=== PATIENT | female | born 1985 | race Caucasian/White ===

== ENCOUNTER 2019-04-01 14:54 | Outpatient (CLI) | payer MEDICAID, SELFPAY ==
--- NOTE | 2019-04-01 15:08 | US_ITS ---
WS: [id number] OB ultrasound, 04/01/2019 Clinical Data: SUPERVISION OF NORMAL Comparison: None. Findings: There is a single interuterine in the breech presentation. heart rate is 150 beats pe r minute. The placenta is anterior, grade 0 and there is a normal amount of amniotic fluid. The estimated gestational age 19w2d is with an HAVEN of approximately 08/24/2019. The estimated w eight is 288 g or approximately 10 ounces. Measurements of growth and development: BPD 4.37 cm HC 16.61 cm AC 14.02 cm FL 3.02 cm US/US OB <= 14 weeks fetus [id number] Impression: 1. Single interuterine . 2. Estimated gestational age of 19w2d with an HAVEN of 08/24/2019. 3. heart rate 150 beats per minute.
== END 2019-04-01 14:55 | disposition home or self-care (01) ==
PROVIDERS: PCP Nurse Practitioner Family; Visit Provider Nurse Practitioner Family
DX: O26.842 Uterine size-date discrepancy, second trimester (principal); Z3A.19 19 weeks gestation of pregnancy
CPT/HCPCS: 76801

== ENCOUNTER 2019-08-25 16:11 | Outpatient (CLI) | payer MEDICAID, SELFPAY ==
[2019-08-25] VITALS (9 sets, daily range): BP systolic 0–132; BP diastolic 0–95; PULSE 97–124; RESP 18; TEMP 36.9; BMI 34.7
[2019-08-25 17:07] LABS: Nitrazine Paper, PH Negative
[2019-08-25 17:19] LABS: Amphetamines Screen Urine Negative (Negative); Barbiturates Screen Urine Negative (Negative); Benzodiazepines Screen Urine Negative (Negative); Cocaine Screen Urine Negative (Negative); Opiate Screen Urine Negative (Negative); PCP Screen Urine Negative (Negative); THC Screen Urine Negative (Negative)
== END 2019-08-25 19:10 | disposition home or self-care (01) ==
LOC: OPOB 16:22 → OBGYN 18:51
PROVIDERS: PCP Nurse Practitioner Family; Visit Provider Obstetrics & Gynecology
DX: O26.899 Other specified pregnancy related conditions, unspecified trimester (principal); Z3A.00 Weeks of gestation of pregnancy not specified; R10.9 Unspecified abdominal pain
CPT/HCPCS: 59025; 80306; 83986; 99211

== ENCOUNTER → 2020-09-18 12:54 | Outpatient (BNVA) | payer MEDICAID, SELFPAY | PROVIDERS: PCP Nurse Practitioner Family; Visit Provider Emergency Medicine | DX: M54.9 Dorsalgia, unspecified (principal) | CPT/HCPCS: 81000 ==

== ENCOUNTER 2021-06-17 22:13 | Inpatient (IN) | payer BC, MEDICAID, SELFPAY ==
[2021-06-17] VITALS (12 sets, daily range): BP systolic 139–174; BP diastolic 83–109; PULSE 86–114; RESP 16–17; BMI 35.2
[2021-06-17 22:18] LABS: Nitrazine Paper, PH Positive
[2021-06-17 22:34] LABS: Basophils % 0.2 %; Eosinophils # 0.1 10^3/uL (0.0-0.8); Eosinophils % 0.7 %; Hematocrit 36.1 % (37.0-47.0); Hemoglobin 11.6 g/dL (11.5-15.3); Lymphocytes # 1.9 10^3/uL (0.8-4.8); Lymphocytes % 14.1 %; Mean Corpuscular HGB Conc 32.1 g/dL (30.0-36.0); Mean Corpuscular Hemoglobin 25.8 pg (28.0-34.0); Mean Corpuscular Volume 80.4 fl (81-99); Mean Platelet Volume 10.7 fL (7.4-10.4); Monocytes # 1.4 10^3/uL (0.2-0.9); Monocytes % 10.4 %; Neutrophils # 9.83 10^3/uL (1.8-7.7); Neutrophils % 73.8 %; Nucleated Red Blood Cells % 0 %; Platelet Count 237 10^3/cmm (130-400); Red Blood Count 4.49 10^6/uL (4.1-5.3); Red Cell Distribution Width 15.1 % (12.1-15.1); White Blood Count 13.3 10^3/uL (4.0-10.0)
[2021-06-17] MEDS: ampicillin 2,000 MG in sodium chloride 0.9% (plus) 50 ML 100 MG IV (22:36)
[2021-06-17] MEDS: lactated ringers 1,000 ML 999 ML IV (22:51)
[2021-06-17 23:23] LABS: Amphetamines Screen Urine Negative (Negative); Barbiturates Screen Urine Negative (Negative); Benzodiazepines Screen Urine Negative (Negative); Cocaine Screen Urine Negative (Negative); Opiate Screen Urine Negative (Negative); PCP Screen Urine Negative (Negative); THC Screen Urine Negative (Negative)
[2021-06-17 23:48] LABS: Add Urine Culture? No; Add Urine Microscopic? YES; Bacteria Urine TRACE /hpf; Bilirubin Urine Neg (Negative); Blood Urine Neg (Negative); Glucose Urine UA Norm (Normal); Ketones Urine Negative (Negative); Leukocyte Esterase Urine Negative (Negative); Nitrate Urine Negative (Negative); Protein Urine Neg (Negative); RBC Urine 15-25 /hpf (0-2); Specific Gravity, Urine 1.005 (1.005-1.030); Squamous Epithelial Cell Urine 15-25 /hpf (0-5); Urine Appearance SL Hazy (CLEAR); Urine Color Yellow (Yellow); Urobilinogen Urine Norm (Negative); WBC Urine 0-4 /hpf (0-5); pH Urine 7 (5-7)
[2021-06-17 23:54] LABS: Urine Creatinine 37 mg/dL (28-217)
[2021-06-18] VITALS (138 sets, daily range): BP systolic 67–177; BP diastolic 40–110; PULSE 61–109; RESP 14–22; TEMP 36.6–37.6; O2SAT 86–100
[2021-06-18 00:01] LABS: UPRO/UCREAT Ratio 1.35 mg/mg CR; Urine Protein Random 50 mg/dL
[2021-06-18 00:13] LABS: Alanine Aminotransferase 19 U/L (0-33); Albumin Level 3.2 g/dL (3.5-5.2); Alkaline Phosphatase 165 IU/L (35-105); Anion Gap 14.6 (5-19); Aspartate Amino Transferase 17 U/L (0-32); Blood Urea Nitrogen 5 mg/dL (6-20); Calcium 8.1 mg/dL (8.5-10.5); Carbon Dioxide 22 mmol/L (22-29); Chloride 104 mmol/L (98-107); Globulin 2.8 g/dL (1.3-4.6); Glomerular Filtration Rate 178.6 mL/min (90-130); Glucose 87 mg/dL (65-115); Osmolality Calculated 281 mOsm/kg (285-295); Potassium 3.6 mmol/L (3.5-5.1); Sodium 137 mmol/L (136-145); Total Bilirubin 0.2 mg/dL (0.15-1.2)
--- NOTE | 2021-06-18 00:20 | P.ANESASSM_ITS ---
Pre-Anesthetic Assessment Height/Weight: Height 1.63 m Weight 92.986 kg Pulse Resp BP 90 17 166/99 06/18/21 00:12 06/17/21 22:19 06/18/21 00:12 Preop Diagnosis: labor pain epidural Familial anesthetic complications: none Was Beta Andrew taken within 24 hours: N/A Was Clonidine taken within 24 hours: N/A Social Tobacco and No alcohol Exam alert, oriented x 3, clear to auscultation bilaterally and regular rate & rhythm Airway Submandibular: within normal limits Cervical ROM: within normal limits Mallampati: Class II Dentition: full Pulmonary None reported CV/HEM None reported None reported Hepatic None reported GI Gastroesophageal Reflux Disease (during ) Metabolic None reported Musc/skel None reported Neuropsych None reported Anesthetic Plan ASA status: 2 Anesthesia: Regional (specify below) Risk of > 500 ml blood loss (7ml/kg in children): No Medications/Allergies Home Medications Medication Instructions Recorded Confirmed Last Taken Type vits,calcium 21-iron fum 1 tab PO DAILY 08/25/19 06/17/21 06/17/21 History 14 mg iron-folic acid 400 mcg tablet ( Complete) famotidine 20 mg tablet (Pepcid) 20 mg PO BID 06/17/21 06/17/21 06/17/21 History Allergies Allergy/AdvReac Type Severity Reaction Status Date / Time No Known Allergies Allergy Verified 06/17/21 21:49 Current Medications Generic Name Dose Route Start Last Admin Trade Name Freq PRN Reason Stop Dose Admin Lactated Ringer's 1,000 mls @ 999 mls/hr 06/17/21 22:32 06/17/21 22:51 Lactated Ringers IV 999 mls/hr .Q1H1M PRN Administration See label comments [facility] Anesthesia Social History Smoking and tobacco status: current every day smoker Female Reproductive History : 6 Spontaneous abortions: No Data Anesthesia : 06/17/21 22:13 06/17/21 23:40 Short CBC 06/17/21 Range/Units 22:13 WBC 13.3 H (4.0-10.0) 10^3/uL Hgb 11.6 (11.5-15.3) g/dL Hct 36.1 L (37.0-47.0) % MCV 80.4 L (81-99) fl Plt Count 237 (130-400) 10^3/cmm Neut % (Auto) 73.8 % Neut # (Auto) 9.83 H (1.8-7.7) 10^3/uL BMP 06/17/21 23:40 Sodium 137 Potassium 3.6 Chloride 104 Carbon Dioxide 22 BUN 5 L Creatinine 0.4 L Glucose 87 Calcium 8.1 L Liver Function 06/17/21 Range/Units 23:40 Total Bilirubin 0.2 (0.15-1.2) mg/dL AST 17 (0-32) U/L ALT 19 (0-33) U/L Alkaline Phosphatase 165 H (35-105) IU/L Albumin 3.2 L (3.5-5.2) g/dL Urine 06/17/21 Range/Units 21:30 Urine Color Yellow (Yellow) Urine Appearance Sl hazy (CLEAR) Urine pH 7 (5-7) Ur Specific [place] 1.005 (1.005-1.030) Urine Protein Neg (Negative) Urine Glucose (UA) Norm (Normal) Urine Ketones Negative (Negative) Urine Nitrate Negative (Negative) Urine Bilirubin Neg (Negative) Ur Leukocyte Esterase Negative (Negative) Urine RBC 15-25 H (0-2) /hpf Urine WBC 0-4 H (0-5) /hpf Cardiac Studies: No Data to Display
[2021-06-18] MEDS: magnesium sulfate premix 2 GM/50 ML PIGGYBACK IV (00:40)
--- NOTE | 2021-06-18 00:56 | P.ANES_ITS ---
Anesthesia Procedures Procedure/Date: 06/18/21 epidural Procedure Narrative: epidural complete, bolus given, epidural pump initiated with DOBBY LOOM WEAVER education given, vitals taken during procedure using OBIX system and satisfactory throughout, patient admits to decrease pain, report of procedure to OB RN Epidural: Time Out Performed: Yes Consents Signed: Procedure Consent Consent: requested by attending/covering physician, from patient, risks and benefits reviewed and patient agrees to proceed Lumbar Level: L3-L4 Epidural position: sitting Epidural procedure: sterile prep of area, 1% lidocaine to numb the area (3 mL), 18 g needle, negative for paresthesia passed, neg for paresthesia, test dose given, 1.5% xylocaine 1:200k epi (5 mL), 0.2% Ropivacaine bolus ml (5 mL), placed PCEA, no systemic response, sterile dressing applied, L.U.D. no apparent complications and 0.2% Ropiavacaine @ mls/hr (13 mL/hr)
[2021-06-18] MEDS: magnesium sulfate premix 20 GM/500 ML BAG IV ×3 (01:01→19:15)
[2021-06-18] MEDS: dextrose 5%-lactated ringers 1,000 ML 125 ML IV ×3 (01:03→19:14)
[2021-06-18] MEDS: ePHEDrine 50 mg/mL Inj 10 MG IVP ×2 (01:43→02:30)
[2021-06-18] MEDS: ondansetron 2 mg/ML SDV 2 mL 4 MG IVP (01:44)
[2021-06-18] MEDS: lactated ringers 1,000 ML 999 ML IV (02:26)
[2021-06-18] MEDS: dextrose 5%-lactated ringers 1,000 ML 75 ML IV (03:30)
[2021-06-18] MEDS: acetaminophen 325 mg Tablet 650 MG PO ×4 (03:33→21:34)
[2021-06-18] MEDS: oxytocin 30 UNIT/500 ML BAG IV (08:10)
--- NOTE | 2021-06-18 09:05 | PC.NURSE ---
Magnesium was stopped at 3:33 am, this is monitoring for increased blood pressures over 160/110 and signs and symptoms of seizure activity.
[2021-06-18] MEDS: nicotine 21 mg Patch 1 PATCH TRANSDERMA (10:34)
--- NOTE | 2021-06-18 14:42 | P.PCNOB_ITS ---
Delivery Note: Date of delivery: June 18, 2021 Pre-delivery diagnoses: Term Tobacco use in Severe preeclampsia Post-delivery diagnoses: Term delivered Severe preeclampsia Procedure: Spontaneous vaginal delivery vaginal delivery Delivering Physician: Lyle Mederos MD Estimated blood loss (mL): 300 Delivery: The patient was noted to be complete and pushing, so was placed in the dorsal lithotomy position, prepped and draped in the usual sterile fashion for a vaginal delivery. Pt. Noted to have epidural anesthesia. At 1418 the patient delivered a term viable male weighing 3135g with scores of 8 and 9 at one and five minutes, respectively. The vertex was delivered spontaneously over intact perineum. The patient was asked to push and the head delivered spontaneously in the RUPERT position, over an intact perineum. A nuchal cord was checked and none noted. The anterior shoulder delivered easily and the posterior shoulder followed. The remainder of the was easily delivered and the oropharynx and nasopharynx was bulb suctioned. The infant was noted to have spontaneous cry and spontaneous movement of all four extremities. The cord was clamped x 2 and cut and noted to have 2 arteries and one vein. The was passed to the mother's abdomen where nursing personnel were in attendance. Cord blood sample was then obtained. The placenta delivered intact spontaneously and the uterus was explored. 20 units of Pitocin was placed in the IV bag to firm the uterus. Examination of the cervix and vaginal vault did not reveal any lacerations. A vaginal pack was then placed. Examination of the perineum showed second-degree laceration. The laceration was repaired with 3-0 Vicryl in the normal fashion in a running non locking fashion to reapproximate the laceration in layers. The vaginal pack was then removed. The patient tolerated this procedure well, and recovered in L&D with her in their LDR room. All sponge and needle counts were correct. A&P Assessment and plan (1) Term delivered: Status: Acute (2) Tobacco smoking complicating : Status: Acute (3) Severe pre-eclampsia affecting sixth : Status: Acute Coding Level of Care Code Acute Delinquency Prevention Social Worker for Chg Fwd Diagnoses Term delivered O80 Tobacco smoking complicating O99.330 Severe pre-eclampsia affecting sixth O14.10; O09.40
--- NOTE | 2021-06-18 14:50 | P.HP_ITS ---
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 Came to labor and delivery complaining of contractions and active labor. No care Present Details : 6 Para: 5 Labs Rubella: Immune RPR: Negative GBS: Negative Review of Systems Narrative: movement: no Const: Denies: fever(s) or chills Card: Denies: chest pain, palpitations, irregular heart rhythm or syncope Resp: Denies: dyspnea GI: Denies: abdominal pain, nausea or vomiting : Denies: flank pain, dysuria, urinary frequency or urinary urgency Musc: Denies: back pain or extremity swelling Skin/Breast: Denies: rash, pruritus, breast pain, nipple discharge or breast mass Neuro: Denies: headache(s), difficulty walking, dizziness or restless legs Psych: Denies: anxiety, depression or mood swings Endo: Denies: polyuria, tired all the time, cold intolerance or heat intolerance Trip/Lymph: Denies: easy bruising, easy bleeding, petechiae or purpura All/Imm: Denies: urticaria Medications/Allergies Home Medications Medication Instructions Recorded Confirmed Last Taken Type vits,calcium 21-iron fum 1 tab PO DAILY 08/25/19 06/23/21 06/17/21 History 14 mg iron-folic acid 400 mcg tablet ( Complete) famotidine 20 mg tablet (Pepcid) 20 mg PO BID 06/17/21 06/23/21 06/17/21 History nifedipine 30 mg tablet,extended 30 mg PO DAILY #30 tab 06/20/21 06/23/21 Unknown Rx release 24 hr (Procardia XL) Allergies Allergy/AdvReac Type Severity Reaction Status Date / Time No Known Allergies Allergy Verified 06/23/21 08:31 PFS 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 PROJECTION TOPOGRAPHER PFSH: Surgical History (Updated 06/23/21 @ 09:01 by Abril Honeycutt MD) H/O dilation and curettage x2 H/O LEEP History of cholecystectomy Family History (Updated 06/23/21 @ 08:36 by Lisa Danny, FOOD HANDLER) Mother Hypertension Ovarian cancer Other Heart disease Hypercholesteremia Thyroid disease Denies family history of Colon cancer Diabetes Breast cancer Uterine cancer Stroke Personal Safety: Do you feel safe at home: Yes Victim of physical abuse: No Victim of emotional abuse: No Victim of sexual abuse: No Would you like help information on resources?: No History History History 8 Term 5 Miscarriages/Ectopic 2 1 Living Children 6 Vitals/I&O/Wt Last Vital Signs Pulse 91 06/18/21 14:36 Resp 17 06/18/21 00:19 BP 140/68 06/18/21 14:36 Pulse Ox 99 06/18/21 03:35 06/17/21 06/18/21 06/18/21 22:59 06:59 14:59 Intake Total 3049.700 / 3049.700 1076.25 / 1076.25 Output Total 599 / 599 1800 / 1800 Balance 2450.700 / 2450.700 -723.75 / -723.75 Weight last 48 hrs Weight 92.986 kg Physical Exam Narrative: GA: Alert and oriented ?3. Lungs: Clear to auscultation bilaterally. Heart: Regular rhythm and rate. Abdomen: Gravid, full the height equals dates, nontender. ACCOUNT EXECUTIVE: SVE; dilation: 7 cm, effacement: 80%, station: 0, presentation: Vx, membranes: SROM. Extremities: no edema, no cyanosis, no calves pain. heart tracing: Basal rate: 140's bpm, Variability: moderate, Accelerations: present, Decelerations: absent, Contraction: q5-10min. Urinary Catheter Management: Mariscal: Cath Placed During This Visit: yes Reason for Continuing Indwelling Catheter: Required Immobilization for Trauma or Surgery or Anesthesia Urinary Catheter Date of Insertion: 06/18/21 Urinary Catheter Time of Insertion: 01:00 Data : 06/20/21 15:00 06/20/21 05:15 A&P Assessment and plan (1) Active labor at term: Mrs. Carbone 36-year-old female G8, P5 with an estimated gestational age of 37+2 weeks. Came to labor and delivery complaining of contractions and active labor. No care Status: Acute (2) Tobacco smoking complicating : Status: Deleted (3) Severe pre-eclampsia affecting sixth : Status: Acute Attestations Medical Necessity Statement*: In my professional opinion per admitting diagn osis. Coding Level of Care Code Acute Shell Coremaker for Chg Fwd Diagnoses Tobacco smoking complicating O99.330 Severe pre-eclampsia affecting sixth O14.10; O09.40 Active labor at term
[2021-06-18] MEDS: ibuprofen 800 mg tablet PO (16:15)
[2021-06-18] MEDS: labetalol 5 mg/mL SDV 20mL 20 MG IVP (16:16)
[2021-06-18 16:58] LABS: Magnesium Level (OB Only) 4.1 mg/dL (5.0-7.5)
[2021-06-18] MEDS: benzocaine-menthol 78 gm Canister 1 SPRAY TOPICAL (20:48)
[2021-06-18] MEDS: oxytocin 30 UNIT/500 ML BAG 600 UNIT IV (22:27)
[2021-06-18] MEDS: fentaNYL 50 mcg/mL INJ 2mL 25 MCG IVP (22:37)
[2021-06-18] MEDS: miSOPROStol 200 mcg Tablet 800 MCG PR (22:41)
--- NOTE | 2021-06-18 22:59 | XRR_ITS ---
PROCEDURE INFORMATION: Exam: XR Chest Exam date and time: 06/18/2021 10:30 PM Age: 36 years old Clinical indication: Shortness of breath; Patient HX: Post SOB and cp; Additional info: Chest pain TECHNIQUE: Imaging protocol: XR of the chest. Views: 1 view. COMPARISON: No relevant prior studies available. FINDINGS: Lungs: No CHF/pulmonary edema. Visible lungs appear essentially clear. Pleural spaces: No visible pneumothorax. No definite pleural fluid. Heart/Mediastinum: Heart size is within normal limits. Bones/joints: No significant acute finding. XR/XR chest 1V portable [id number] IMPRESSION: 1. Essentially unremarkable single view chest. 2. Other findings discussed above.
--- NOTE | 2021-06-18 22:59 | ECG_ITS ---
[facility] Test Date: 2021-06-18 Pat Name: Ping Kapadia Department: Room: [facility] Gender: Female Prefabricator: : 1985 Requested By: Abril Honeycutt Order Number: [id number] Josse MD: Zeynep Gottlieb M.D. Measurements Intervals [place] Rate: 73 P: 57 MT: 179 QRS: 52 QRSD: 109 T: 54 QT: 416 QTc: 461 Interpretive Statements SINUS RHYTHM No previous ECG available for comparison Electronically Signed On 06-19-2021 15:01:17 CDT by Zeynep Gottlieb M.D. [id number]
[2021-06-18 23:11] LABS: Basophils % 0.2 %; Eosinophils # 0.1 10^3/uL (0.0-0.8); Eosinophils % 0.4 %; Hematocrit 26.5 % (37.0-47.0); Hemoglobin 8.5 g/dL (11.5-15.3); Lymphocytes # 1.8 10^3/uL (0.8-4.8); Lymphocytes % 13.7 %; Mean Corpuscular HGB Conc 32.1 g/dL (30.0-36.0); Mean Platelet Volume 11.9 fL (7.4-10.4); Monocytes # 1.1 10^3/uL (0.2-0.9); Neutrophils # 10.37 10^3/uL (1.8-7.7); Neutrophils % 77.3 %; Nucleated Red Blood Cells % 0 %; Platelet Count 206 10^3/cmm (130-400); Red Blood Count 3.27 10^6/uL (4.1-5.3); Red Cell Distribution Width 15.4 % (12.1-15.1); White Blood Count 13.4 10^3/uL (4.0-10.0)
[2021-06-18] MEDS: midazolam 1 mg/mL INJ 2 mL 2 MG IVP (23:21)
[2021-06-18 23:23] LABS: Alanine Aminotransferase 16 U/L (0-33); Albumin Level 2.6 g/dL (3.5-5.2); Alkaline Phosphatase 132 IU/L (35-105); Anion Gap 15.3 (5-19); Aspartate Amino Transferase 19 U/L (0-32); Blood Urea Nitrogen 2 mg/dL (6-20); Calcium 6.5 mg/dL (8.5-10.5); Carbon Dioxide 18 mmol/L (22-29); Chloride 105 mmol/L (98-107); Globulin 1.7 g/dL (1.3-4.6); Glomerular Filtration Rate 178.6 mL/min (90-130); Glucose 144 mg/dL (65-115); Osmolality Calculated 279 mOsm/kg (285-295); Potassium 3.3 mmol/L (3.5-5.1); Sodium 135 mmol/L (136-145); Total Bilirubin 0.2 mg/dL (0.15-1.2); Total Protein 4.3 g/dL (6.6-8.7)
--- NOTE | 2021-06-18 23:28 | PC.NURSE ---
1956 This nurse went to patient's room to recheck blood pressure. Patient was concerned about needing diaper change and spit up on blanket. This nurse started to change baby's diaper when patient started to complain of increased cramping and pain in abdomen. Patient stated she felt like she needed to have a bowel movement, then stated she thought she needed to pass a clot. This nurse then moved over to rub the patient's fundus and clots started to come out, at the same time this nurse pushed the call light for assistance. Patricia Elias RN came in and saw the clot and instructed this nurse to continue rubbing. At this time the rest of the clot came out, the size of a softball, followed by >100 mL of blood. The call light was turned on again and Patricia Engle RN and [facility] responded. 2205 Call placed by this nurse to Dr. Mederos. Notified him of bleeding and asked for an order for uterotonic medications. MD ordered misoprostol 800 mg rectal and to call Dr. Honeycutt, who has assumed care of patient, for further orders as needed. 2209 Call placed by this nurse to Dr. Honeycutt. Notified her of bleeding and order for Misoprostol given by Dr. Mederos. This nurse asked MD for further orders for uterotonic medications. MD ordered oxytocin IV 600 ml/hr for 300 mL then 60 ml/hr for 200 mL and tranexamic acid 1000 mg in NS 100 mL at 330 mls/hr IV. MDs presence requested at this time. 2217 Call placed by this nurse to the household cook. She was notified of the continued bleeding and asked for her to come to the department to assist with deteriorating patient. 2219 Rapid response called because patient was complaining of shortness of breath and chest pain. 2220 Rapid response team began arriving in room. This nurse, Patricia Engle, Patricia Elias, Analilia Chicas at bedside at this time. Report given to rapid response team. Refer to MAR for medications given. 2224 Call placed by this nurse to check ETA of Dr. Honeycutt. stated that [place] was at the corner of [address] [place] [id number] and would be in the parking lot in 2 minutes.
[2021-06-18 23:31] LABS: Fibrinogen 380 mg/dL (174-498); Partial Thromboplastin Time 27.3 SECONDS (23.9-36.7)
--- NOTE | 2021-06-18 23:34 | P.CONIM_ITS ---
Providers/Reason For Consult Consulting Physician/Specialty*: Doctor Roderick Reason for Consult*: bleeding Attending Physician: Lyle Mederos MD Primary Care Provider: PRESLEY Truong History of Present Illness History of Present Illness The patient is a 36-year-old female who was transferred to the ICU at approximately 11 PM on June 18, 2021 after a rapid response was called due to bleeding. The patient was admitted on June 17, 2021 for for which she underwent natural delivery on June 18, 2021. The patient is seen a proximally and hour after rapid response was called in the ICU. With the transient hypoactive hypotensive episode due to bleeding, she admitted to nausea, postdelivery abdominal pain, lightheadedness, dizziness, diaphoresis. She denies fever, rigors, vomiting, cough, wheeze, diarrhea, myalgia, palpitations, sense of rapid heartbeat, sensation of irregular heartbeat, peripheral edema. The patient initially endorsed chest pain however upon further clarification she was confounding chest pain and dyspnea and she did deny chest pain. She presents for further evaluation Review of Systems General: Reports: 10 or more systems reviewed and unremarkable except in HPI and below Medications/Allergies Home Medications Medication Instructions Recorded Confirmed Last Taken Type vits,calcium 21-iron fum 1 tab PO DAILY 08/25/19 06/17/21 06/17/21 History 14 mg iron-folic acid 400 mcg tablet ( Complete) famotidine 20 mg tablet (Pepcid) 20 mg PO BID 06/17/21 06/17/21 06/17/21 History Allergies Allergy/AdvReac Type Severity Reaction Status Date / Time No Known Allergies Allergy Verified 06/17/21 21:49 Current Medications Generic Name Dose Route Start Last Admin Trade Name Freq PRN Reason Stop Dose Admin Acetaminophen 650 mg 06/17/21 22:19 06/18/21 21:34 Acetaminophen 325 Mg Tablet PO 650 mg Q6H PRN Administration Mild pain or temp > 100.4 Benzocaine 1 spray 06/18/21 14:47 06/18/21 20:48 Benzocaine-Menthol 78 Gm Canister TOPICAL 1 can PRN PRN Administration PAIN Docusate Sodium 100 mg 06/18/21 18:00 06/18/21 19:35 Docusate Sodium 100 Mg Capsule PO Not Given BID JASMYN Ephedrine Sulfate 10 mg 06/17/21 22:19 06/18/21 02:30 Ephedrine 50 Mg/Ml Inj IVP 10 mg Q3M PRN Administration hypotension as directed by Dextrose/Lactated Ringer's 1,000 mls @ 125 mls/hr 06/17/21 22:30 06/18/21 19:14 Dextrose 5%-Lactated Ringers IV 125 mls/hr .Q8H JASMYN Administration Tranexamic Acid 1,000 mg/ 110 mls @ 330 mls/hr 06/17/21 22:19 06/18/21 22:18 Sodium Chloride IV 330 mls/hr Q30M PRN Administration BLEEDING Lactated Ringer's 1,000 mls @ 999 mls/hr 06/17/21 22:32 06/18/21 03:27 Lactated Ringers IV Infused .Q1H1M PRN Infusion See label comments Dextrose/Lactated Ringer's 1,000 mls @ 125 mls/hr 06/18/21 00:30 06/18/21 20:33 Dextrose 5%-Lactated Ringers IV Not Given .Q8H JAMSYN Magnesium Sulfate 20 gm in 500 mls @ 50 mls/hr 06/18/21 00:30 06/18/21 19:15 Magnesium Sulfate Premix IV 50 mls/hr .Q10H JASMYN Administration Dextrose/Lactated Ringer's 1,000 mls @ 125 mls/hr 06/18/21 15:00 06/18/21 20:32 Dextrose 5%-Lactated Ringers IV Not Given .Q8H JASMYN Magnesium Sulfate 20 gm in 500 mls @ 50 mls/hr 06/18/21 15:00 06/18/21 20:32 Magnesium Sulfate Premix IV Not Given .Q10H JASMYN Ibuprofen 800 mg 06/18/21 15:00 06/18/21 16:15 Ibuprofen 800 Mg Tablet PO 800 mg TID JASMYN Administration Labetalol HCl 20 mg 06/17/21 23:01 06/18/21 16:16 Labetalol 5 Mg/Ml Sdv 20ml IVP 20 mg PRN PRN Administration HYPERTENSION Protocol Nicotine 1 patch 06/18/21 10:15 06/18/21 10:34 Nicotine 21 Mg Patch TRANSDERMA 1 patch DAILY JASMYN Administration Ondansetron HCl 4 mg 06/17/21 22:19 06/18/21 01:44 Ondansetron 2 Mg/Ml Sdv 2 Ml IVP 4 mg Q4H PRN Administration NAUSEA AND VOMITING PFSH Acute PFSH: Social History Smoking and tobacco status: current every day smoker Female Reproductive History: : 6 Spontaneous abortions: No Vitals/I&O/Wt Last Vital Signs Temp 99.7 F H 06/18/21 19:30 Pulse 78 06/18/21 20:30 Resp 16 06/18/21 20:30 BP 155/89 06/18/21 21:30 Pulse Ox 100 06/18/21 19:30 06/18/21 06/18/21 06/19/21 14:59 22:59 06:59 Intake Total 1076.25 / 1076.25 1458.333 / 2534.583 Output Total 1800 / 1800 3805 / 5605 Balance -723.75 / -723.75 -2346.667 / -3070.417 Weight last 48 hrs Weight 92.986 kg Physical Exam Narrative: General: -Alert -No acute distress -No dyspnea -No tachypnea Head: -Atraumatic -Normocephalic Eyes: -Pupils equally round and reactive to light and accommodation -Extraocular muscles intact Neurological: -Cranial nerves II-XII intact Neck: -No jugular venous distention -No thyromegaly -No cervical lymphadenopathy Heart: -Regular rate -Regular rhythm -No murmurs -No gallops -No rubs Lungs: -No wheeze -No rhonchi -No rales ? Abdomen: -Normal bowel sounds in all four quadrants -No rebound -No guarding -No tenderness Extremities: -2/4 pulse in all four extremities -No clubbing -No cyanosis -No edema -No calf tenderness present bilaterally -Negative Tristin?s sign bilaterally Musculoskeletal: -5/5 bilateral upper extremity strength -5/5 bilateral lower extremity strength -Sensorium of bilateral upper extremities are equal and intact -Sensorium of bilateral lower extremities are equal and intact ? Additional Details / Additional Findings / Exceptions / Miscellaneous: Urinary Catheter Management: Mariscal: Cath Placed During This Visit: yes, but has since been removed by the nurse Reason for Continuing Indwelling Catheter: Accurate Measurement of Urinary Output in Critically Ill Patients Urinary Catheter Date of Insertion: 06/18/21 Urinary Catheter Time of Insertion: 15:20 Date Urinary Catheter Removed: 06/18/21 Time Urinary Catheter Discontinued: 14:15 Data : 06/18/21 22:25 06/18/21 22:25 A&P Assessment and plan (1) Severe pre-eclampsia affecting sixth : Status: Acute Plan bleeding. Agents have been administered per obstetrics/gynecology. Patient is receiving 1 unit packed red blood cells at approximately 11 PM on June 18, 2021. Will check CBC every 6 hours. Serum ferritin, iron panel pending. PT/INR, PTT, fibrinogen level pending. Will transfuse as necessary Dyspnea. This may be a sequelae of anxiety from bleeding. Chest x- ray?portable pending. ABG pending. Will attempt to wean the patient off supplemental oxygen. If patient is hypoxemic, will check CTA of the chest to rule out pulmonary ML 7 Status post delivery of viable fetus on June 18, 2021. Monitoring as per obstetrics/gynecology GERD Elevated blood pressure/hypertension Obesity. The patient will be counseled regarding lifestyle modification Smoker. She smoked during the time of her . The patient will need to be counseled regarding smoking cessation DVT Proflex is. Bilateral SCD Consult Attestations Medical Necessity Statement: The patient's hospitalization is anticipated be greater than 2 midnights as she already has been here for approximately 24 hours for delivery for Coding Level of Care Code Acute Solar Manufacturer'S Representative for Chg Fwd Diagnoses Severe pre-eclampsia affecting sixth O14.10; O09.40
[2021-06-18] MEDS: fentaNYL 50 mcg/mL INJ 2mL IVP (23:48)
--- NOTE | 2021-06-18 23:56 | P.PN_ITS ---
Subjective Subjective: called by nursing staff to see patient. She delivered earlier today and is on Magnesium sulfate. She passed a large clot and then had severe bleeding. Her uterus was greatly enlarged. While enroute, rapid response was called due to unstable status. I performed a bimanual exam and removed a few clots. I could feel placental tissue in the uterus. She was taken to the ICU and twice, I performed a bimanuel exam under conscious sedation. I was unable to remove the tissue due to the patient being intolerant. Vitals/I&O/Wt Last Vital Signs Temp 99.7 F H 06/18/21 19:30 Pulse 78 06/18/21 20:30 Resp 16 06/18/21 20:30 BP 155/89 06/18/21 21:30 Pulse Ox 100 06/18/21 19:30 06/18/21 06/18/21 06/19/21 14:59 22:59 06:59 Intake Total 1076.25 / 1076.25 1458.333 / 2534.583 Output Total 1800 / 1800 3805 / 5605 Balance -723.75 / -723.75 -2346.667 / -3070.417 Weight last 48 hrs Weight 205 lb Physical Exam Const: GENERAL APPEARANCE: well kempt, well developed, in distress and anxious ; not cooperative and not comfortable NUTRITIONAL APPEARANCE: obese ORIENTATION/CONSCIOUSNESS: Yes awake, Yes oriented to person, Yes oriented to place and Yes oriented to time Resp: COMMON NORMALS: normal respiratory effort EFFORT & INSPECTION: Yes able to speak in complete sentences GI: COMMON NORMALS: Soft to palpation and non-tender PALPATION: Yes Soft to palpation : COMMON NORMALS: Yes normal external appearance and Yes normal appearance of the vagina SPECULUM EXAM - VAGINA: Yes vaginal bleeding OB/EXTERNAL & SPECULUM: vaginal bleeding UTERUS PALPATION: Yes Other OB uterine findings (enlarged uterus with tissue palpated at fundus) Extremity: COMMON NORMALS: no calf tenderness Neuro: SENSORIUM/ORIENTATION: Yes oriented to person, Yes oriented to place and Yes oriented to time Psych: APPEARANCE: Yes well kempt Urinary Catheter Management: Mariscal: Cath Placed During This Visit: yes, but has since been removed by the nurse Reason for Continuing Indwelling Catheter: Accurate Measurement of Urinary Output in Critically Ill Patients Urinary Catheter Date of Insertion: 06/18/21 Urinary Catheter Time of Insertion: 15:20 Date Urinary Catheter Removed: 06/18/21 Time Urinary Catheter Discontinued: 14:15 Data : 06/18/21 22:25 06/18/21 22:25 A&P Assessment and plan (1) hemorrhage: Status: Acute (2) Retained placenta: plan to take patient to the OR for dilation and curettage patient continues to have moderate bleeding. Status: Acute Attestations Medical Necessity Statement*: the patient will be her 2 midnights. Coding Level of Care Code Acute Director Of Occupational Health for Chg Fwd Diagnoses hemorrhage O72.1 Retained placenta O73.0
[2021-06-19] VITALS (38 sets, daily range): BP systolic 124–187; BP diastolic 73–112; PULSE 65–90; RESP 12–29; TEMP 36.6–36.8; O2SAT 93–99
[2021-06-19 00:15] LABS: NT Pro B Type Natriuretic Pept 59 pg/mL (0-125)
[2021-06-19 00:24] LABS: Magnesium Level (OB Only) 4.8 mg/dL (5.0-7.5)
[2021-06-19 00:32] LABS: Troponin T (5th) Once 7 ng/L (0-10)
--- NOTE | 2021-06-19 00:37 | PC.NURSE ---
THIS NURSE ENTERED PT'S ROOM TO ANSWER CALL LIGHT. WHEN THIS NURSE ENTERED THE ROOM, Patricia GALLEGOS RN AND Obdulio NOVOA RN WERE PERFORMING FUNDAL MASSAGE AND THIS NURSE NOTICED A LARGE CLOT BETWEEN THE PATIENT'S LEGS AND A LARGE AMOUNT OF KYE RED BLEEDING. THIS NURSE TURNED ON THE LIGHT AND CUT OFF THE PATIENT'S MESH UNDERWEAR. Obdulio NOVOA RN STATED PT WAS FIRM WITH MASSAGE BUT WAS STILL BLEEDING. THIS NURSE BEGAN TO PERFORM FUNDAL MASSAGE AND NOTICED A CONTINUOUS TRICKLE OF BLOOD AND STATED TO Obdulio NOVOA RN TO CALL THE PHYSICIAN AND GET ORDERS FOR BLEED MEDICATIONS. THIS NURSE STARTED A BOLUS OF FLUID AT THIS TIME FROM IV FLUIDS HANGING AT BEDSIDE DUE TO PT FEELING LIGHT HEADED. Patricia GALLEGOS RN BEGAN FUNDAL MASSAGE AT THIS TIME AND 2 LARGE CLOTS WERE NOTED ON THE CHUX APPROXIMATELY THE SIZE OF A SOFTBALL. CHUX WERE CHANGED. THIS NURSE BEGAN FUNDAL MASSAGE AND PT'S UTERUS WAS 2 FINGERS ABOVE UMBILICUS AND WAS ENLARGE TO ROUGHLY TWICE THE SIZE OF A NORMAL 8 HOUR POST DELIVERY UTERUS. Obdulio NOVOA RN BROUGHT IN MISOPROSTOL 800MCG AND STATED TO Patricia GALLEGOS RN VERBAL ORDERS FROM DR. IGNACIO TO PLACE RECTALLY AND TO CALL DR. BOND FOR FURTHER ORDERS. THIS NURSE CONTINUED TO PERFORM FUNDAL MASSAGE AND UTERUS WOULD FIRM UP TO 1 FINGER BELOW UMBILICUS. WHEN FUNDAL MASSAGE WAS STOPPED, THIS NURSE COULD FEEL FUNDUS OF UTERUS BECOME BOGGY AND RETURN TO 2 FINGERS ABOVE UMBILICUS. THIS NURSE INSTRUCTED Obdulio NOVOA RN TO CALL DR. BOND FOR MORE MEDICATIONS TO HELP STOP THE BLEEDING. Patricia GALLEGOS RN STATED TO ST NAVEEN TO SET THE VITAL SIGNS MACHINE FOR EVERY 5 MINUTES AT THIS TIME. Patricia GALLEGOS RN TOOK OVER FUNDAL MASSAGE AND THIS NURSE WENT TO [facility] AND Obdulio NOVOA RN PULLED TXA FOR THE PT ON DR. BOND ORDER AND WAS ATTEMPTING TO PULL PITOCIN PREMIX BAG. Obdulio NOVOA RN LEFT TO PLACE ORDER FOR PITOCIN PREMIX AND THIS NURSE RETURNED TO PT'S ROOM AND BEGAN TO MIX TXA. Patricia GALLEGOS RN WAS STILL PERFORMING FUNDAL MASSAGE AND ANOTHER LARGE CLOT WAS EXPRESSED APPROXIMATELY THE SIZE OF A SOFTBALL. THIS NURSE INSTRUCTED ST NAVEEN TO TELL Obdulio NOVOA RN TO CALL DIRECTOR OF FINANCIAL AID FOR AN EXTRA SET OF HANDS. THIS NURSE SCANNED AND HUNG TXA AND NOTICED BLOOD PRESSURE READING OF 86/42. PT WAS VERBALIZING TO Patricia GALLEGOS RN I CAN'T BREATHE. MY CHEST HURTS. I DON'T KNOW HOW MUCH MORE I CAN BREATHE. THIS NURSE STATED FOR A RAPID RESPONSE TO BE CALLED TO OB 7. Obdulio NOVOA RN CALLED RAPID RESPONSE AT 2218. Analilia LONG RN, DIRECTOR OF FINANCIAL AID ARRIVED AT BEDSIDE AND THIS NURSE GAVE A QUICK REPORT. VALERI FROM LAB ARRIVED TO DRAW BLOOD. Patricia GALLEGOS RN WAS STILL PERFORMING FUNDAL MASSAGE AT THIS TIME. THE RAPID RESPONSE TEAM BEGAN TO ARRIVE. LUCINA ALBERTO RN PLACED 18G IV TO PT'S LEFT FOREARM. RT NAYANA BEGAN TO MAINTAIN PT'S AIRWAY AND APPLIED OXYGEN TO THE PT VIA NON REBREATHER AT 15 L/MIN. DR. SLOAN ARRIVED AT BEDSIDE AND THIS RN GAVE QUICK REPORT OF THE LAST 20 MINUTES, MEDICATIONS GIVEN, AND BRIEF HISTORY. ORDERS FOR CHEST XR, ABG, CBC, CMP, PT, PTT, INR, FIBRINOGEN, AND LACTIC ACID TO BE DRAWN. HE ALSO ASKED IF A TYPE AND SCREEN HAD BEEN PERFORMED ON THE PT. Obdulio NOVOA RN STATED YES AND STATED THE PT WAS O-. ORDERS FOR 2 UNITS EMERGENCY RELEASE BLOOD TO BE BROUGHT TO THE OB DEPARTMENT. THIS NURSE LEFT THE BEDSIDE AND CALLED LAB FOR THE BLOOD. DR. SLOAN STATED FOR PT TO BE TRANSFERRED TO ICU FOR CLOSE MONITORING. AT THIS TIME, PT WAS STILL ON MAGNESIUM SULFATE FOR PRE-ECLAMPSIA. DR. BOND ARRIVED AT BEDSIDE AT 2227 AND THIS NURSE AND Obdulio NOVOA RN PROVIDED REPORT ON PT'S STATUS AND DECLINE. DR. BOND STATED SHE WANTED TO MANUALLY EVACUATE THE PT AND WHEN SHE DID, SHE EXPRESSED A VERY SMALL CLOT AND STATED SHE FELT LIKE THERE WAS STILL PLACENTA INSIDE THE PT'S UTERUS. PT DID NOT TOLERATE MANUAL EVACUATION WELL. THIS NURSE STATED TO DR. BOND ICU CAN PERFORM CONSCIOUS SEDATION AND MAYBE THE PT WOULDN'T HAVE TO GO TO SURGERY. SHE AGREED TO THIS. THIS NURSE AND Patricia GALLEGOS RN READIED PT FOR TRANSPORT TO ICU.
--- NOTE | 2021-06-19 00:47 | ANES.PREANE2 ---
Pre-Anesthetic Assessment Height/Weight: Height 1.63 m Weight 92.986 kg Temp Pulse Resp BP Pulse Ox 99.7 F H 78 16 155/89 100 06/18/21 19:30 06/18/21 20:30 06/18/21 20:30 06/18/21 21:30 06/18/21 19:30 Preop Diagnosis: hemorrhage Operation Date: 06/19/21 00:35 Proposed Procedures p Dilation And Curettage (D&C)(Not Applicable) - Abril Honeycutt MD Familial anesthetic complications: None Was Beta Andrew taken within 24 hours: N/A Was Clonidine taken within 24 hours: N/A Social Tobacco and No alcohol Exam alert, oriented x 3, clear to auscultation bilaterally and regular rate & rhythm Airway Submandibular: within normal limits Cervical ROM: within normal limits Mallampati: Class II Dentition: false CV/HEM Anemia ( hemorrhage, retained placenta) Pre E on Mg++ infusion Anesthetic Plan ASA status: 3E Anesthesia: General Medications/Allergies Home Medications Medication Instructions Recorded Confirmed Last Taken Type vits,calcium 21-iron fum 1 tab PO DAILY 08/25/19 06/17/21 06/17/21 History 14 mg iron-folic acid 400 mcg tablet ( Complete) famotidine 20 mg tablet (Pepcid) 20 mg PO BID 06/17/21 06/17/21 06/17/21 History Allergies Allergy/AdvReac Type Severity Reaction Status Date / Time No Known Allergies Allergy Verified 06/17/21 21:49 Current Medications Generic Name Dose Route Start Last Admin Trade Name Freq PRN Reason Stop Dose Admin Acetaminophen 650 mg 06/17/21 22:19 06/18/21 21:34 Acetaminophen 325 Mg Tablet PO 650 mg Q6H PRN Administration Mild pain or temp > 100.4 Benzocaine 1 spray 06/18/21 14:47 06/18/21 20:48 Benzocaine-Menthol 78 Gm Canister TOPICAL 1 can PRN PRN Administration PAIN Docusate Sodium 100 mg 06/18/21 18:00 06/18/21 19:35 Docusate Sodium 100 Mg Capsule PO Not Given BID JASMYN Ephedrine Sulfate 10 mg 06/17/21 22:19 06/18/21 02:30 Ephedrine 50 Mg/Ml Inj IVP 10 mg Q3M PRN Administration hypotension as directed by Dextrose/Lactated Ringer's 1,000 mls @ 125 mls/hr 06/17/21 22:30 06/18/21 19:14 Dextrose 5%-Lactated Ringers IV 125 mls/hr .Q8H JASMYN Administration Tranexamic Acid 1,000 mg/ 110 mls @ 330 mls/hr 06/17/21 22:19 06/18/21 22:18 Sodium Chloride IV 330 mls/hr Q30M PRN Administration BLEEDING Lactated Ringer's 1,000 mls @ 999 mls/hr 06/17/21 22:32 06/18/21 03:27 Lactated Ringers IV Infused .Q1H1M PRN Infusion See label comments Dextrose/Lactated Ringer's 1,000 mls @ 125 mls/hr 06/18/21 00:30 06/18/21 20:33 Dextrose 5%-Lactated Ringers IV Not Given .Q8H JASMYN Magnesium Sulfate 20 gm in 500 mls @ 50 mls/hr 06/18/21 00:30 06/18/21 19:15 Magnesium Sulfate Premix IV 50 mls/hr .Q10H JASMYN Administration Dextrose/Lactated Ringer's 1,000 mls @ 125 mls/hr 06/18/21 15:00 06/18/21 20:32 Dextrose 5%-Lactated Ringers IV Not Given .Q8H JASMYN Magnesium Sulfate 20 gm in 500 mls @ 50 mls/hr 06/18/21 15:00 06/18/21 20:32 Magnesium Sulfate Premix IV Not Given .Q10H JASMYN Ibuprofen 800 mg 06/18/21 15:00 06/18/21 16:15 Ibuprofen 800 Mg Tablet PO 800 mg TID JASMYN Administration Labetalol HCl 20 mg 06/17/21 23:01 06/18/21 16:16 Labetalol 5 Mg/Ml Sdv 20ml IVP 20 mg PRN PRN Administration HYPERTENSION Protocol Nicotine 1 patch 06/18/21 10:15 06/18/21 10:34 Nicotine 21 Mg Patch TRANSDERMA 1 patch DAILY JASMYN Administration Ondansetron HCl 4 mg 06/17/21 22:19 06/18/21 01:44 Ondansetron 2 Mg/Ml Sdv 2 Ml IVP 4 mg Q4H PRN Administration NAUSEA AND VOMITING PFSH Anesthesia Social History Smoking and tobacco status: current every day smoker Female Reproductive History : 6 Spontaneous abortions: No Data Anesthesia : 06/18/21 22:25 06/18/21 22:25 Short CBC 06/17/21 06/18/21 Range/Units 22:13 22:25 WBC 13.3 H 13.4 H (4.0-10.0) 10^3/uL Hgb 11.6 8.5 L (11.5-15.3) g/dL Hct 36.1 L 26.5 L (37.0-47.0) % MCV 80.4 L 81.0 (81-99) fl Plt Count 237 206 (130-400) 10^3/cmm Neut % (Auto) 73.8 77.3 % Neut # (Auto) 9.83 H 10.37 H (1.8-7.7) 10^3/uL BMP 06/17/21 06/18/21 23:40 22:25 Sodium 137 135 L Potassium 3.6 3.3 L Chloride 104 105 Carbon Dioxide 22 18 L BUN 5 L 2 L Creatinine 0.4 L 0.4 L Glucose 87 144 H Calcium 8.1 L 6.5 L Cardiac Enzymes 06/18/21 06/18/21 Range/Units 22:25 22:25 Troponin T Gen 5 ng/L 7 (0-10) ng/L NT-Pro-B Natriuret Pep 59 (0-125) pg/mL Liver Function 06/17/21 06/18/21 Range/Units 23:40 22:25 Total Bilirubin 0.2 0.2 (0.15-1.2) mg/dL AST 17 19 (0-32) U/L ALT 19 16 (0-33) U/L Alkaline Phosphatase 165 H 132 H (35-105) IU/L Albumin 3.2 L 2.6 L (3.5-5.2) g/dL Urine 06/17/21 Range/Units 21:30 Urine Color Yellow (Yellow) Urine Appearance Sl hazy (CLEAR) Urine pH 7 (5-7) Ur Specific Jerome 1.005 (1.005-1.030) Urine Protein Neg (Negative) Urine Glucose (UA) Norm (Normal) Urine Ketones Negative (Negative) Urine Nitrate Negative (Negative) Urine Bilirubin Neg (Negative) Ur Leukocyte Esterase Negative (Negative) Urine RBC 15-25 H (0-2) /hpf Urine WBC 0-4 H (0-5) /hpf Blood Bank 06/17/21 22:13 Blood Type O Negative Rho(D) Type Negative Antibody Screen Negative Coags 06/18/21 22:25 PT 14.60 INR 1.10 APTT 27.3 Fibrinogen 380 Cardiac Studies: No Data to Display
[2021-06-19] MEDS: ceFAZolin 1,000 mg SDV 2000 MG IVP (00:55)
--- NOTE | 2021-06-19 01:04 | PC.NURSE ---
Went to patient's Rapid response. Patient was bleeding from uterus. Dr. Lafleur was at bedside and attempted to remove the rest of the placenta at bedside, but was unable to do so. Decided to move patient to ICU where she could be monitored closely as well as give her some versed to relax her for next attempt to manual remove the placenta again. After 2 attempts it was decided that she needed to go to surgery and have a D&C. She did receive a unit of uncrossmatched blood due to the amount of bleeding she had per Dr. Lafleur. It was given over 45 minutes so that it would be in before surgery. Had Kaylene Fabian RN from OB with this RN monitoring fundus, vaginal bleeding, and magnesium checks.
[2021-06-19 01:18] LABS: Ferritin 8 ng/mL (15-150); Iron 25 ug/dL (37-145); Percent Saturation 5.4 % (20-50); Total Iron Binding Capacity 462 mcg/dl; Unsaturated Iron Binding 437 ug/dL (112-347)
--- NOTE | 2021-06-19 01:31 | PC.NURSE ---
Due to patient being given uncrossmatched type O neg blood was not able to chart them under the TAR section of the charting system. Vital signs are charted. Julia OLIVA and this Rn checked blood that was hand carried from lab. Verified it was O neg. Unit # was [id number]. It was started at June 18, 2021 at 2322 and was finished by 2359. No adverse reactions noted.
[2021-06-19] MEDS: tranexamic acid 1,000 mg/10mL SDV 1000 MG IV (01:39)
--- NOTE | 2021-06-19 01:42 | PM.OP ---
Operative Report Date of procedure: June 19, 2021 Pre-op diagnosis: Preop Diagnosis hemorrhage, retained placenta Post-op diagnosis: same Post-op findings: fragments of placenta removed Procedure done: suction and sharp curettage Specimens removed/disposition: fragments of placenta sent to pathology Surgeon: Abril Honeycutt Anesthesia: General Estimated blood loss (mL): 100 IV fluids (mL): 600 Urine output (mL): 200 Complications: none Findings: enlarged uterus with blood clot and tissue Condition: stable Disposition: ICU Brief History: The patient had a delayed hemorrhage. Bimanual exam failed to resolve the bleeding. Placenta could be palpated, but unable to remove it manually. Procedure: The patient was taken to the operating room where general anesthesia was administered and found to be adequate. She was prepped and draped in the normal sterile fashion in the dorsal lithotomy position in [facility]. The bladder already had a mackey catheter in place. A weighted speculum was placed into the vagina and the anterior lip of the cervix grasped with a single-tooth tenaculum. The cervix was already dilated due to recent delivery. A sharp curette was used first to remove the larger pieces of placenta. A 11 mm suction catheter was introduced into the uterine cavity. The suction was activated and products of conception were removed. I made several passes with the suction catheter followed by 1 pass with a sharp curette. The texture was gritty. The patient had scan bleeding at this time. I waited five minutes and performed another bimanual exam. No placenta could be palpated and her bleeding was normal again. A Pitocin bolus was given as well as TXA. The uterus was clamped down well. All instruments were removed. The patient tolerated the procedure well. Sponge lap and needle counts were correct x3. She was taken to the ICU in stable condition. She will have another H/H drawn and be monitored on tele over night.
[2021-06-19] MEDS: dextrose 5%-lactated ringers 1,000 ML 125 ML IV (02:07)
[2021-06-19] MEDS: potassium chloride ER 20 mEq Tablet 40 MEQ PO (03:15)
[2021-06-19] MEDS: HYDROcodone-acetaminophen 5-325 mg Tablet PO (03:15)
[2021-06-19] MEDS: oxytocin 30 UNIT/500 ML BAG 50 UNIT IV ×2 (03:28→14:30)
[2021-06-19] MEDS: miSOPROStol 200 mcg Tablet 1000 MCG PR (03:29)
[2021-06-19] MEDS: carboprost tromethamine 250 mcg/mL Amp IM (03:30)
[2021-06-19 04:41] LABS: Basophils % 0.2 %; Eosinophils # 0.1 10^3/uL (0.0-0.8); Eosinophils % 0.4 %; Hematocrit 30.9 % (37.0-47.0); Hemoglobin 9.5 g/dL (11.5-15.3); Lymphocytes # 1.2 10^3/uL (0.8-4.8); Lymphocytes % 7.1 %; Mean Corpuscular HGB Conc 30.7 g/dL (30.0-36.0); Mean Corpuscular Hemoglobin 26.4 pg (28.0-34.0); Mean Corpuscular Volume 85.8 fl (81-99); Mean Platelet Volume 11.8 fL (7.4-10.4); Monocytes # 1.2 10^3/uL (0.2-0.9); Neutrophils # 14.27 10^3/uL (1.8-7.7); Neutrophils % 84.8 %; Nucleated Red Blood Cells % 0 %; Platelet Count 216 10^3/cmm (130-400); Red Cell Distribution Width 15.2 % (12.1-15.1); White Blood Count 16.8 10^3/uL (4.0-10.0)
[2021-06-19] MEDS: labetalol 5 mg/mL SDV 20mL 20 MG IVP (04:41)
[2021-06-19 05:33] LABS: Alanine Aminotransferase 17 U/L (0-33); Alkaline Phosphatase 147 IU/L (35-105); Anion Gap 13.3 (5-19); Aspartate Amino Transferase 29 U/L (0-32); Blood Urea Nitrogen 3 mg/dL (6-20); Calcium 6.1 mg/dL (8.5-10.5); Carbon Dioxide 20 mmol/L (22-29); Chloride 106 mmol/L (98-107); Globulin 1.7 g/dL (1.3-4.6); Glucose 110 mg/dL (65-115); Osmolality Calculated 277 mOsm/kg (285-295); Potassium 4.3 mmol/L (3.5-5.1); Sodium 135 mmol/L (136-145); Total Bilirubin 0.2 mg/dL (0.15-1.2); Total Protein 4.7 g/dL (6.6-8.7)
[2021-06-19] MEDS: magnesium sulfate premix 20 GM/500 ML BAG IV (06:15)
[2021-06-19 06:30] LABS: Magnesium Level (OB Only) 4.8 mg/dL (5.0-7.5)
[2021-06-19 07:39] LABS: Troponin T (5th) Once 7 ng/L (0-10)
--- NOTE | 2021-06-19 08:44 | PC.NURSE ---
Patient requested bed rosales at this time for bowel movement
[2021-06-19] MEDS: prenatal vitamin Capsule 1 CAP PO (09:18)
[2021-06-19] MEDS: loperamide 2 mg Capsule 4 MG PO (09:18)
[2021-06-19] MEDS: nicotine 21 mg Patch 1 PATCH TRANSDERMA (09:18)
[2021-06-19] MEDS: ferrous sulfate EC 325 mg Tablet PO ×2 (09:19→18:14)
[2021-06-19] MEDS: ascorbic acid 500 mg Tablet PO (09:19)
[2021-06-19] MEDS: HYDROcodone-acetaminophen 10-325 mg Tablet 1 TAB PO ×3 (09:28→21:51)
--- NOTE | 2021-06-19 10:02 | PC.NURSE ---
Patient reports a headache at this time. She is still in a lot of pain at this time in her back and cramping. She got hydrocodone not to long ago. She also made a phone call to her mother and said it was causing her some anxiety as well.
--- NOTE | 2021-06-19 10:50 | PC.NURSE ---
Patient was transferred from ICU to OB7 at this time. She was transported via wheelchair and tolerated the transfer well. She was helped to new OB bed and given rags and warm soapy water to wash off with it. She was positioned in a comfortable position per her request she is currently sitting semi fowlers. She has fresh ice chips and requested Popsicle which the cafeteria is going to bring some up as we are out. She is still in pain at this time in her back and still has abdominal cramping but says it is getting better with the hydrocodone.
[2021-06-19 12:09] LABS: Magnesium Level (OB Only) 5.4 mg/dL (5.0-7.5)
--- NOTE | 2021-06-19 15:20 | PM.PN ---
Subjective Subjective: She is feeling much better this morning. Denies any shortness of breath, feels it may have been related to her having anxiety at the time of bleeding. Denies chest pain or pressure. Denies abdominal pain. Vitals/I&O/Wt Last Vital Signs Temp 97.9 F 06/19/21 13:03 Pulse 72 06/19/21 13:03 Resp 18 06/19/21 13:03 BP 124/73 06/19/21 13:03 Pulse Ox 95 06/19/21 13:03 06/19/21 06/19/21 06/19/21 06:59 14:59 22:59 Intake Total 1730.417 / 4375.000 1000 / 1000 Output Total 1964 / 7869 1310 / 1310 Balance -233.583 / -3494.000 -310 / -310 Weight last 48 hrs Weight 92.986 kg Physical Exam Const: COMMON NORMALS: alert GENERAL APPEARANCE: cooperative ORIENTATION/CONSCIOUSNESS: Yes awake HENMT: COMMON NORMALS: normocephalic, EAC's normal, Normal external nose present and moist oral mucous membranes HEAD & SCALP: normocephalic NOSE: Normal external nose present EXTERNAL AUDITORY CANAL: EAC's normal Neck/C-Spine: COMMON NORMALS: no meningeal signs Chest: CHEST: Yes Symmetrical chest wall rise Resp: COMMON NORMALS: clear to auscultation bilaterally AUSCULTATION: clear to auscultation bilaterally Cardio: COMMON NORMALS: regular rate, regular rhythm and No murmurs present (Cardio) RATE: regular rate RHYTHM: regular rhythm GI: COMMON NORMALS: Soft to palpation PALPATION: Yes Soft to palpation Extremity: COMMON NORMALS: no pedal edema Neuro: COMMON NORMALS: moves all extremities SENSORIUM/ORIENTATION: Yes alert MENINGEAL SIGNS: Yes no meningeal signs Psych: COMMON NORMALS: mental status grossly normal Skin: COMMON NORMALS: no wounds RASHES: no rashes Urinary Catheter Management: Mariscal: Cath Placed During This Visit: yes, but has since been removed by the nurse Reason for Continuing Indwelling Catheter: Accurate Measurement of Urinary Output in Critically Ill Patients Urinary Catheter Date of Insertion: 06/18/21 Urinary Catheter Time of Insertion: 15:20 Date Urinary Catheter Removed: 06/18/21 Time Urinary Catheter Discontinued: 14:15 Data : 06/19/21 02:45 06/19/21 05:00 A&P Assessment and plan (1) hemorrhage: S/p D&C, 1 unit pRBC. Hemoglobin with good response. Maintaining blood pressure well. Symptomatically feeling better. She is transferred for continued care on [facility]OST[facility] unit. Status: Acute (2) Retained placenta: Status: Acute (3) Severe pre-eclampsia affecting sixth : Status: Acute Plan Dyspnea: Resolved. She has been saturating well on room air. Feels her dyspnea was related to anxiety at the time of episode of acute illness. Status post delivery of viable fetus on June 18, 2021. Monitoring as per obstetrics/gynecology GERD Elevated blood pressure/hypertension Obesity. The patient will be counseled regarding lifestyle modification Smoker. She smoked during the time of her . The patient will need to be counseled regarding smoking cessation DVT Proflex is. Bilateral SCD Attestations Medical Necessity Statement*: Continue admission for continued care after hemorrhage. Coding Level of Care Code Acute Correctional Maintenance Technician for g Fwd Exam Comprehensive Diagnoses Severe pre-eclampsia affecting sixth O14.10; O09.40 hemorrhage O72.1 Retained placenta O73.0
--- NOTE | 2021-06-19 15:50 | PC.NURSE ---
Patient up to bathroom with standby assistance for first time since stopping magnesium at 1420. Patients mackey catheter was discontinued at this time. Patient tolerated procedure well. She was then helped to clean herself up with some soap and rags, get a clean pad and mesh underwear on, new gown, and then she did one lap around the OB and tolerated that well. Upon entering the room she decided to sit up in the chair. She tolerated eating her lunch family brought and denies nausea or vomiting. She was instructed to pee in the hat the next time she goes so we can make sure her urine output remains adequate she verbalized understanding.
--- NOTE | 2021-06-19 15:58 | PC.NURSE ---
Blood pressure slightly high at this time as patient just walked a lap around the OB and got up to the bathroom by herself for the first time since stopping magnesium. She denies headache or vision changes. Her lung sounds are clear. She is still having good urine output. Her reflexes are the same as before. She denies pain at this time and states the hydrocodone has helped her cramping.
--- NOTE | 2021-06-19 17:12 | P.PN_ITS ---
Subjective Subjective: The patient spent the night in the ICU for telemetry monitoring. She is doing well today. She has been transferred back to the OB floor. She reports minimal bleeding. She is feeling well. Mag sulfate has been discontinued. Blood pressures are normal. She denies any SOA or chest pain. Vitals/I&O/Wt Last Vital Signs Temp 98.2 F 06/19/21 15:57 Pulse 89 06/19/21 15:57 Resp 18 06/19/21 15:57 BP 155/80 06/19/21 15:57 Pulse Ox 98 06/19/21 15:57 06/19/21 06/19/21 06/19/21 06:59 14:59 22:59 Intake Total 1730.417 / 4375.000 1904.167 / 8976.021 3140 / 2904.167 Output Total 1964 / 7869 1710 / 1710 Balance -233.583 / -3494.000 194.167 / 372.304 7297 / 1194.167 Weight last 48 hrs Weight 205 lb Physical Exam Narrative: Doing well. minimal lochia. Tolerating a regular diet. Const: COMMON NORMALS: no acute distress, patient oriented x3, no limitations, healthy appearing, alert and well nourished GENERAL APPEARANCE: cooperative, comfortable, well kempt and well developed ORIENTATION/CONSCIOUSNESS: Yes awake, Yes oriented to person, Yes oriented to place and Yes oriented to time Resp: COMMON NORMALS: normal respiratory effort EFFORT & INSPECTION: Yes able to speak in complete sentences GI: COMMON NORMALS: Soft to palpation and non-tender PALPATION: Yes Soft to palpation Extremity: COMMON NORMALS: no calf tenderness Neuro: COMMON NORMALS: patient oriented x3 SENSORIUM/ORIENTATION: Yes alert, Yes oriented to person, Yes oriented to place and Yes oriented to time Psych: APPEARANCE: Yes well kempt Urinary Catheter Management: Mariscal: Cath Placed During This Visit: yes, but has since been removed by the nurse Reason for Continuing Indwelling Catheter: Accurate Measurement of Urinary Output in Critically Ill Patients Urinary Catheter Date of Insertion: 06/18/21 Urinary Catheter Time of Insertion: 15:20 Date Urinary Catheter Removed: 06/18/21 Time Urinary Catheter Discontinued: 14:15 Data : 06/19/21 02:45 06/19/21 05:00 Attestations Medical Necessity Statement*: The patient has already been here 2 midnights Coding Level of Care Code Acute Water Aerobics Instructor for Gaby Menard
[2021-06-19] MEDS: docusate sodium 100 mg Capsule PO (18:14)
[2021-06-19] MEDS: ibuprofen 800 mg tablet PO (20:48)
[2021-06-20] VITALS (15 sets, daily range): BP systolic 130–167; BP diastolic 75–95; PULSE 81–111; RESP 16–18; TEMP 36.6–36.9; O2SAT 96–98
[2021-06-20] MEDS: HYDROcodone-acetaminophen 10-325 mg Tablet 1 TAB PO (03:41)
[2021-06-20 05:48] LABS: Alanine Aminotransferase 13 U/L (0-33); Albumin Level 2.6 g/dL (3.5-5.2); Alkaline Phosphatase 112 IU/L (35-105); Anion Gap 13.2 (5-19); Aspartate Amino Transferase 18 U/L (0-32); Blood Urea Nitrogen 5 mg/dL (6-20); Calcium 7.5 mg/dL (8.5-10.5); Carbon Dioxide 24 mmol/L (22-29); Chloride 105 mmol/L (98-107); Globulin 2.2 g/dL (1.3-4.6); Glomerular Filtration Rate 138.1 mL/min (90-130); Glucose 117 mg/dL (65-115); Osmolality Calculated 284 mOsm/kg (285-295); Potassium 4.2 mmol/L (3.5-5.1); Sodium 138 mmol/L (136-145); Total Bilirubin 0.2 mg/dL (0.15-1.2); Total Protein 4.8 g/dL (6.6-8.7)
[2021-06-20 06:51] LABS: Basophils % 0.2 %; Eosinophils # 0.1 10^3/uL (0.0-0.8); Eosinophils % 1.4 %; Hematocrit 21.7 % (37.0-47.0); Hemoglobin 6.8 g/dL (11.5-15.3); Lymphocytes # 1.7 10^3/uL (0.8-4.8); Lymphocytes % 17.5 %; Mean Corpuscular HGB Conc 31.3 g/dL (30.0-36.0); Mean Corpuscular Hemoglobin 26.4 pg (28.0-34.0); Mean Corpuscular Volume 84.1 fl (81-99); Mean Platelet Volume 11.2 fL (7.4-10.4); Monocytes % 10.2 %; Neutrophils # 6.64 10^3/uL (1.8-7.7); Neutrophils % 70.3 %; Nucleated Red Blood Cells % 0 %; Platelet Count 199 10^3/cmm (130-400); Red Blood Count 2.58 10^6/uL (4.1-5.3); Red Cell Distribution Width 15.9 % (12.1-15.1); White Blood Count 9.4 10^3/uL (4.0-10.0)
[2021-06-20] MEDS: docusate sodium 100 mg Capsule PO (08:17)
[2021-06-20] MEDS: prenatal vitamin Capsule 1 CAP PO (08:17)
[2021-06-20] MEDS: ascorbic acid 500 mg Tablet PO (08:17)
[2021-06-20] MEDS: nicotine 21 mg Patch 1 PATCH TRANSDERMA (08:17)
[2021-06-20] MEDS: ibuprofen 800 mg tablet PO ×2 (08:17→14:08)
[2021-06-20] MEDS: ferrous sulfate EC 325 mg Tablet PO (08:17)
[2021-06-20] MEDS: alum-mag-hydroxide-sime 30 mL UDC PO ×2 (09:41→14:07)
--- NOTE | 2021-06-20 12:08 | ANE.PACU2 ---
Inpatient post-anesthesia follow up: Airway intact: Yes Vital signs: Temperature 97.8 F Pulse Rate 87 Respiratory Rate 18 Blood Pressure 161/92 Pulse Oximetry 98 Oxygen Delivery Me thod Room Air Oxygen Flow Rate Fraction of Inspir ed Oxygen Hydration adequate: Yes Nausea and vomiting: No Pain level: 2 Mental status: Baseline
[2021-06-20] MEDS: NIFEdipine ER (24 hr) 30 mg Tablet PO (12:39)
--- NOTE | 2021-06-20 12:53 | PM.DCS ---
Discharge Providers Date of Admission: 06/17/21 22:13 Date of Discharge: June 20, 2021 Attending Provider at Admission: Lyle Mederos MD Attending Provider at Discharge: Abril Honeycutt MD Primary Care Provider: PRESLEY Truong Diagnoses at Discharge Discharge Diagnosis (1) hemorrhage: Status: Acute (2) Retained placenta: Status: Acute (3) Severe pre-eclampsia affecting sixth : Status: Acute Reason for Visit Reason for Visit: leaking fluid Hospital Course Hospital Course The patient was admitted in active labor. she had spontaneous delivery of a term male . She developed severe preeclampsia just before delivery. Labs were normal, but pressures were in the severe range. She was started on magnesium sulfate. She was doing well. About 8 hours , she passed a very large blood clot and then began having heavy vaginal bleeding. Her uterus was enlarged and it was difficult to keep it clamped down. It would become boggy and she would gush blood. At one point, she had difficulty breathing and rapid response was called. Hemoglobin dropped from 11.4 to 8.6 and 1 unit of blood was given. A bimanual exam was performed and clot was removed. Placenta could be palpated, but due to patient intolerance, it could not be removed. She was transferred to the ICU for telemetry monitoring. An exam was performed under conscious sedation, but was still intolerable to exam. She was taken to the OR and sharp and suction D&C was performed. The placenta was able to be removed and the bleeding normalized. postoperatively, her hemoglobin was stable at 9.5. She was continued on magnesium sulfate for 24 hours and pitocin was continued as well. She continued to have rare gushes of blood postoperatively.. This was more than normal amount of bleeding, but only happened a few times. She was stable the next day and transferred back to OB. She was taken off of the pitocin about 8 hours after the magnesium sulfate was discontinued. She was only having scant bleeding by this time. A repeat hemogram on postop day #2 was 6.8 and vaginal bleeding was scant. She was given two units of blood. She began having elevated blood pressures again. She was started on Procaria 30 mg and discharged in stable condition. She will follow up in 3 days for a blood pressure check and repeat hemogram. She was given strict preeclamptic as well as bleeding precautions. Physical Exam Const: COMMON NORMALS: no acute distress, patient oriented x3, no limitations, healthy appearing, alert and well nourished Resp: COMMON NORMALS: normal respiratory effort EFFORT & INSPECTION: Yes able to speak in complete sentences GI: COMMON NORMALS: Soft to palpation and non-tender PALPATION: Yes Soft to palpation Extremity: COMMON NORMALS: no calf tenderness Neuro: COMMON NORMALS: patient oriented x3 SENSORIUM/ORIENTATION: Yes alert Urinary Catheter Management: Mariscal: Cath Placed During This Visit: yes, but has since been removed by the nurse Reason for Continuing Indwelling Catheter: Accurate Measurement of Urinary Output in Critically Ill Patients Urinary Catheter Date of Insertion: 06/18/21 Urinary Catheter Time of Insertion: 15:20 Date Urinary Catheter Removed: 06/18/21 Time Urinary Catheter Discontinued: 14:15 Discharge Data Studies Completed and Pending Completed Studies During Hospitalization Category Date Time Status XR chest 1V portable [id number] Routine Exams 06/18/21 22:59 Completed Pending at discharge Category Date Time Status Complete Blood Count w/Auto AM LABS Lab 06/21/21 04:00 Ordered Complete Blood Count w/Auto AM LABS Lab 06/22/21 04:00 Ordered Leukocyte Reduced RBC Stat Lab 06/19/21 00:16 Results Type and Screen Stat Lab 06/18/21 22:59 Results Pathology: Surgical [PTH] Routine Pth 06/19/21 02:12 Ordered Radiology Impressions Chest X-Ray 06/18/21 22:59 IMPRESSION: 1. Essentially unremarkable single view chest. 2. Other findings discussed above. Laboratory Results WBC 9.4 10^3/uL (4.0-10.0) 06/20/21 06:25 RBC 2.58 10^6/uL (4.1-5.3) L 06/20/21 06:25 Hgb 6.8 g/dL (11.5-15.3) L 06/20/21 06:25 Hct 21.7 % (37.0-47.0) L 06/20/21 06:25 MCV 84.1 fl (81-99) 06/20/21 06:25 MCH 26.4 pg (28.0-34.0) L 06/20/21 06:25 MCHC 31.3 g/dL (30.0-36.0) 06/20/21 06:25 RDW 15.9 % (12.1-15.1) H 06/20/21 06:25 Plt Count 199 10^3/cmm (130-400) 06/20/21 06:25 MPV 11.2 fL (7.4-10.4) H 06/20/21 06:25 Neut % (Auto) 70.3 % 06/20/21 06:25 Lymph % (Auto) 17.5 % 06/20/21 06:25 [place] % (Auto) 10.2 % 06/20/21 06:25 Eos % (Auto) 1.4 % 06/20/21 06:25 Baso % (Auto) 0.2 % 06/20/21 06:25 Neut # (Auto) 6.64 10^3/uL (1.8-7.7) 06/20/21 06:25 Lymph # (Auto) 1.7 10^3/uL (0.8-4.8) 06/20/21 06:25 [place] # (Auto) 1.0 10^3/uL (0.2-0.9) H 06/20/21 06:25 Eos # (Auto) 0.1 10^3/uL (0.0-0.8) 06/20/21 06:25 Baso # (Auto) 0.0 10^3/uL (0.0-0.1) 06/20/21 06:25 Nucleated RBC % (auto) 0 % 06/20/21 06:25 Nucleated RBCs # 0.0 /100WBC 06/20/21 06:25 PT 14.60 SECONDS (12.1-14.9) 06/18/21 22:25 INR 1.10 (0.8-1.2) 06/18/21 22:25 APTT 27.3 SECONDS (23.9-36.7) 06/18/21 22:25 Fibrinogen 380 mg/dL (174-498) 06/18/21 22:25 Sodium 138 mmol/L (136-145) 06/20/21 05:15 Potassium 4.2 mmol/L (3.5-5.1) 06/20/21 05:15 Chloride 105 mmol/L (98-107) 06/20/21 05:15 Carbon Dioxide 24 mmol/L (22-29) 06/20/21 05:15 Anion Gap 13.2 (5-19) 06/20/21 05:15 BUN 5 mg/dL (6-20) L 06/20/21 05:15 Creatinine 0.5 mg/dL (0.5-0.9) 06/20/21 05:15 GFR Calculation 138.1 mL/min (90-130) H 06/20/21 05:15 Glucose 117 mg/dL (65-115) H 06/20/21 05:15 Calculated Osmolality 284 mOsm/kg (285-295) L 06/20/21 05:15 Calcium 7.5 mg/dL (8.5-10.5) L 06/20/21 05:15 Magnesium 5.4 mg/dL (5.0-7.5) 06/19/21 11:00 Iron 25 ug/dL (37-145) L 06/18/21 22:25 TIBC 462 mcg/dl 06/18/21 22:25 % Saturation 5.4 % (20-50) L 06/18/21 22:25 Unsat Iron Binding 437 ug/dL (112-347) H 06/18/21 22:25 Ferritin 8 ng/mL (15-150) L 06/18/21 22:25 Total Bilirubin 0.2 mg/dL (0.15-1.2) 06/20/21 05:15 AST 18 U/L (0-32) 06/20/21 05:15 ALT 13 U/L (0-33) 06/20/21 05:15 Alkaline Phosphatase 112 IU/L (35-105) H 06/20/21 05:15 Troponin T Gen 5 ng/L 7 ng/L (0-10) 06/19/21 06:58 NT-Pro-B Natriuret Pep 59 pg/mL (0-125) 06/18/21 22:25 Total Protein 4.8 g/dL (6.6-8.7) L 06/20/21 05:15 Albumin 2.6 g/dL (3.5-5.2) L 06/20/21 05:15 Globulin 2.2 g/dL (1.3-4.6) 06/20/21 05:15 Urine Color Yellow (Yellow) 06/17/21 21:30 Urine Appearance Sl hazy (CLEAR) 06/17/21 21:30 Urine pH 7 (5-7) 06/17/21 21:30 Ur Specific Schneider 1.005 (1.005-1.030) 06/17/21 21:30 Urine Protein Neg (Negative) 06/17/21 21:30 Urine Glucose (UA) Norm (Normal) 06/17/21 21:30 Urine Ketones Negative (Negative) 06/17/21 21:30 Urine Blood Neg (Negative) 06/17/21 21:30 Urine Nitrate Negative (Negative) 06/17/21 21:30 Urine Bilirubin Neg (Negative) 06/17/21 21:30 Urine Urobilinogen Norm mg/dL (Negative) 06/17/21 21:30 Ur Leukocyte Esterase Negative (Negative) 06/17/21 21:30 Urine RBC 15-25 /hpf (0-2) H 06/17/21 21:30 Urine WBC 0-4 /hpf (0-5) H 06/17/21 21:30 Ur Squamous Epith Cells 15-25 /hpf (0-5) H 06/17/21 21:30 Amorphous Sediment Not Reportable 06/17/21 21:30 Urine Bacteria Trace /hpf (NONE) 06/17/21 21:30 U Random Total Protein 50 mg/dL 06/17/21 21:30 Urine Creatinine 37 mg/dL (28-217) 06/17/21 21:30 Protein/Creatinin Ratio 1.35 mg/mg CR 06/17/21 21:30 Urine Opiates Screen Negative ng/mL (Negative) 06/17/21 21:30 Ur Barbiturates Screen Negative ng/mL (Negative) 06/17/21 21:30 Ur Phencyclidine Scrn Negative ng/mL (Negative) 06/17/21 21:30 Ur Amphetamines Screen Negative ng/mL (Negative) 06/17/21 21:30 U Benzodiazepines Scrn Negative ng/mL (Negative) 06/17/21 21:30 Urine Cocaine Screen Negative ng/mL (Negative) 06/17/21 21:30 U Marijuana (THC) Screen Negative ng/mL (Negative) 06/17/21 21:30 Blood Type O Negative 06/17/21 22:13 Rho(D) Type Negative 06/17/21 22:13 Antibody Screen Negative 06/17/21 22:13 Crossmatch See Detail 06/17/21 22:13 Vitals Last Vital Signs Temp 97.8 F 06/20/21 12:00 Pulse 81 06/20/21 12:25 Resp 18 06/20/21 12:20 BP 167/88 06/20/21 12:25 Pulse Ox 98 06/20/21 09:37 Discharge Plan Discharge Patient Disposition: Home Condition: Stable Prescriptions: New Procardia XL 30 mg tablet extended release 24 hr 30 mg PO DAILY Qty: 30 3RF Continued Complete 14 mg iron- 400 mcg Tablet 1 tab PO DAILY 0RF Pepcid 20 mg Tablet 20 mg PO BID 0RF Discharge Orders: Discharge Order (Routine); Ordered 06/20/21 Ordered By: Abril Honeycutt Patient Instructions: Depression (DC), Bleeding (DC), Preeclampsia and Eclampsia After Delivery (GEN), Hemorrhage (DC), OB Discharge Report, OB Food/Drug Interaction Guide, OB Care at Home, Opioid Safety, OB Vaginal Deliveries - [facility] Discharge Attestations Time Spent in Discharge Care*: less than 30 min Quality Metrics Clinical Quality Measures [ No reported AMI, CVA or VTE this stay] Coding Level of Care Code Acute Chg FW DC note Diagnoses hemorrhage O72.1 Retained placenta O73.0 Severe pre-eclampsia affecting sixth O14.10; O09.40
--- NOTE | 2021-06-20 14:36 | P.PN_ITS ---
Subjective Subjective: She reports she is feeling much better today. Denies any shortness of breath, chest pain or pressure. 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 She was started on blood pressure medication due to blood pressures above goal. She has a follow-up appointment in 3 days. Vitals/I&O/Wt Last Vital Signs Temp 97.8 F 06/20/21 13:00 Pulse 84 06/20/21 13:00 Resp 18 06/20/21 13:00 BP 153/87 06/20/21 13:00 Pulse Ox 98 06/20/21 09:37 06/19/21 06/20/21 06/20/21 22:59 06:59 14:59 Intake Total 1000 / 2904.167 700 / 700 Balance 1000 / 1194.167 700 / 700 Physical Exam Narrative: Sitting up in chair. Family at bedside. Const: COMMON NORMALS: alert GENERAL APPEARANCE: cooperative ORIENTATION/CONSCIOUSNESS: Yes awake HENMT: COMMON NORMALS: normocephalic, EAC's normal, Normal external nose present and moist oral mucous membranes HEAD & SCALP: normocephalic NOSE: Normal external nose present EXTERNAL AUDITORY CANAL: EAC's normal Neck/C-Spine: COMMON NORMALS: no meningeal signs Chest: CHEST: Yes Symmetrical chest wall rise Resp: COMMON NORMALS: clear to auscultation bilaterally AUSCULTATION: clear to auscultation bilaterally Cardio: COMMON NORMALS: regular rate, regular rhythm and No murmurs present (Cardio) RATE: regular rate RHYTHM: regular rhythm GI: COMMON NORMALS: Soft to palpation PALPATION: Yes Soft to palpation Extremity: COMMON NORMALS: no pedal edema Neuro: COMMON NORMALS: moves all extremities SENSORIUM/ORIENTATION: Yes alert MENINGEAL SIGNS: Yes no meningeal signs Psych: COMMON NORMALS: mental status grossly normal Skin: COMMON NORMALS: no wounds RASHES: no rashes Urinary Catheter Management: Mariscal: Cath Placed During This Visit: yes, but has since been removed by the nurse Reason for Continuing Indwelling Catheter: Accurate Measurement of Urinary Output in Critically Ill Patients Urinary Catheter Date of Insertion: 06/18/21 Urinary Catheter Time of Insertion: 15:20 Date Urinary Catheter Removed: 06/18/21 Time Urinary Catheter Discontinued: 14:15 Data : 06/20/21 06:25 06/20/21 05:15 A&P Assessment and plan (1) hemorrhage: Additional unit. BC given today, total of 3 due to hemoglobin 6.8 this morning. However, no further bleeding, hemodynamically he has been doing well, no tachycardia. We will recheck hemoglobin at 3:00. She otherwise has been cleared for discharge by absconded with follow-up appointment in 3 days. S/p D&C early on 06/19. Maintaining blood pressure well. Symptomatically feeling better. Status: Acute (2) Retained placenta: As above. Status: Acute (3) Severe pre-eclampsia affecting sixth : Status: Acute Plan Blood pressure above goal, so she is started on antihypertensive. Dyspnea: Resolved. She has been saturating well on room air. Feels her dyspnea was related to anxiety at the time of episode of acute illness. Status post delivery of viable fetus on June 18, 2021. Monitoring as per obstetrics/gynecology GERD Elevated blood pressure/hypertension Obesity. The patient will be counseled regarding lifestyle modification Smoker. She smoked during the time of her . Continue to encourage smoking cessation. DVT PPX bilateral SCD Attestations Medical Necessity Statement*: Continued evaluation following hemorrhage. Coding Level of Care Code Acute Java Analyst for Chg Fwd Diagnoses hemorrhage O72.1 Retained placenta O73.0 Severe pre-eclampsia affecting sixth O14.10; O09.40
[2021-06-20 15:21] LABS: Hematocrit 29.7 % (37.0-47.0)
[2021-06-20 15:35] LABS: Hemoglobin 9.7 g/dL (11.5-15.3)
--- NOTE | 2021-06-20 18:39 | PC.NURSE ---
Dr Honeycutt called and notified of vital signs at this time. Orders received to proceed with discharge. Discussed that pt should be seen for BP check tomorrow if she felt she needed it, and to be sure and call Monday to set up appointment with Dr Honeycutt on Monday.
== END 2021-06-20 18:55 | disposition home or self-care (01) | DRG 798 ==
LOC: ICU 06-18 23:03 → NUR 06-19 10:52 → OBGYN 06-19 10:53
PROVIDERS: Internal Medicine; Obstetrics & Gynecology; Admitting Provider Obstetrics & Gynecology; PCP Nurse Practitioner Family; Visit Provider Obstetrics & Gynecology
PROC: 10D17ZZ Extraction of Products of Conception, Retained, Via Natural or Artificial Opening (ICD-10-PCS; principal; 2021-06-19 00:35)
DX: O14.14 Severe pre-eclampsia complicating childbirth (principal); Z37.0 Single live birth; Z3A.37 37 weeks gestation of pregnancy; O72.2 Delayed and secondary postpartum hemorrhage; O70.1 Second degree perineal laceration during delivery; O90.89 Other complications of the puerperium, not elsewhere classified; I95.89 Other hypotension; R06.00 Dyspnea, unspecified; O99.334 Smoking (tobacco) complicating childbirth; F17.200 Nicotine dependence, unspecified, uncomplicated; O16.5 Unspecified maternal hypertension, complicating the puerperium; O99.62 Diseases of the digestive system complicating childbirth; K21.9 Gastro-esophageal reflux disease without esophagitis; O99.345 Other mental disorders complicating the puerperium; F06.4 Anxiety disorder due to known physiological condition
CPT/HCPCS: 36415; 36430; 51702; 59025; 59409; 71045; 80053; 80306; 81001; 82570; 82728; 83540; 83550; 83735; 83880; 83986; 84156; 84484; 85014; 85018; 85025; 85384; 85610; 85730; 86850; 86900; 86920; 88307; 93005; 96372; 99211; J0290; J0330; J0690; J2250; J2405; J2704; J2795; J3010; J3475; J3490; P9016

== ENCOUNTER → 2021-06-23 09:03 | Outpatient (BNVA) | payer OTHER, SELFPAY | PROVIDERS: PCP Nurse Practitioner Family; Visit Provider Obstetrics & Gynecology | DX: D64.9 Anemia, unspecified (principal) | CPT/HCPCS: 85027 ==

== ENCOUNTER 2021-07-20 10:00 | Day surgery (SDC) | payer BC, MEDICAID, SELFPAY ==
[2021-07-19 11:21] VITALS: BMI 30.9
[2021-07-20] VITALS (10 sets, daily range): BP systolic 145–175; BP diastolic 75–97; PULSE 65–88; RESP 13–21; TEMP 36.4–36.5; O2SAT 93–100
[2021-07-20] MEDS: sodium chloride 0.9% 1,000 ML 30 ML IV (10:36)
[2021-07-20] MEDS: acetaminophen 1,000 MG/100 ML PIGGYBACK 400 MG IV (10:37)
[2021-07-20] MEDS: scopolamine 1.5 Patch 1 PATCH TRANSDERMA (10:38)
[2021-07-20] MEDS: gabapentin 300 mg Capsule PO (10:39)
[2021-07-20] MEDS: CELEcoxib 200 mg Capsule 400 MG PO ×2 (10:39→10:54)
[2021-07-20] MEDS: ketorolac 30 mg/mL INJ IVP (10:39)
--- NOTE | 2021-07-20 10:45 | ANES.PREANE2 ---
Pre-Anesthetic Assessment Height/Weight: Height 1.63 m Weight 81.647 kg Temp Pulse Resp BP Pulse Ox 97.7 F 84 18 146/91 99 07/20/21 10:12 07/20/21 10:12 07/20/21 10:12 07/20/21 10:12 07/20/21 10:12 Preop Diagnosis: desires sterilization Operation Date: 07/20/21 11:30 Proposed Procedures p Laparoscopic Salpingectomy 71767/z30.2(Bilateral) - Abril Honeycutt MD Familial anesthetic complications: None Was Beta Andrew taken within 24 hours: N/A Was Clonidine taken within 24 hours: N/A Last intake: Intake Last Liquid Date 07/19/21 Last Liquid Time 18:00 Last Solid Date 07/19/21 Last Solid Time 18:00 Social Tobacco and No alcohol Exam alert, oriented x 3 and regular rate & rhythm Airway Submandibular: within normal limits Cervical ROM: within normal limits Mallampati: Class II Dentition: false Pulmonary Chronic Obstructive Pulmonary Disease CV/HEM Anemia GI Gastroesophageal Reflux Disease Anesthetic Plan ASA status: 2 Anesthesia: General Medications/Allergies Home Medications Medication Instructions Recorded Confirmed Last Taken Type vits,calcium 21-iron fum 1 tab PO DAILY 08/25/19 07/20/21 07/19/21 History 14 mg iron-folic acid 400 mcg tablet ( Complete) famotidine 20 mg tablet (Pepcid) 20 mg PO BID 06/17/21 07/20/21 07/19/21 History Allergies Allergy/AdvReac Type Severity Reaction Status Date / Time No Known Allergies Allergy Verified 07/20/21 10:11 Current Medications Generic Name Dose Route Start Last Admin Trade Name Smita PRN Reason Stop Dose Admin Sodium Chloride 1,000 mls @ 30 mls/hr 07/20/21 10:15 07/20/21 10:36 Sodium Chloride 0.9% IV 07/21/21 10:14 30 mls/hr .Q24H JASMYN Administration PFSH Anesthesia Surgical History H/O dilation and curettage x2 H/O LEEP History of cholecystectomy Family History Mother Hypertension Ovarian cancer Other Heart disease Hypercholesteremia Thyroid disease Denies family history of Colon cancer Diabetes Breast cancer Uterine cancer Stroke Female Reproductive History Spontaneous abortions: No Data Anesthesia Cardiac Studies: No Data to Display
[2021-07-20 11:01] LABS: OR HCG Qualitative Urine Negative (Negative)
[2021-07-20 11:10] LABS: Basophils % 0.3 %; Eosinophils # 0.2 10^3/uL (0.0-0.8); Hematocrit 38.1 % (37.0-47.0); Hemoglobin 11.8 g/dL (11.5-15.3); Lymphocytes # 1.5 10^3/uL (0.8-4.8); Lymphocytes % 15.5 %; Mean Corpuscular Hemoglobin 25.5 pg (28.0-34.0); Mean Corpuscular Volume 82.5 fl (81-99); Mean Platelet Volume 10.1 fL (7.4-10.4); Monocytes # 0.7 10^3/uL (0.2-0.9); Monocytes % 7.6 %; Neutrophils # 7.17 10^3/uL (1.8-7.7); Neutrophils % 74.2 %; Nucleated Red Blood Cells % 0 %; Platelet Count 385 10^3/cmm (130-400); Red Blood Count 4.62 10^6/uL (4.1-5.3); Red Cell Distribution Width 15.3 % (12.1-15.1); White Blood Count 9.7 10^3/uL (4.0-10.0)
[2021-07-20 11:26] LABS: Blood Urea Nitrogen 5 mg/dL (6-20); Calcium 9.3 mg/dL (8.5-10.5); Carbon Dioxide 28 mmol/L (22-29); Chloride 101 mmol/L (98-107); Glomerular Filtration Rate 178.6 mL/min (90-130); Glucose 83 mg/dL (65-115); Osmolality Calculated 280 mOsm/kg (285-295); Sodium 137 mmol/L (136-145)
[2021-07-20 11:29] LABS: Anion Gap 11.9 (5-19); Potassium 3.9 mmol/L (3.5-5.1)
--- NOTE | 2021-07-20 11:31 | W.PM.OPSUD ---
Surgery/Procedure H&P Update DATE OF PROCEDURE: July 20, 2021 DATE H&P PERFORMED: 06/14/21 H&P UPDATE INFORMATION: I have reviewed H&P completed within last 30 days, I have examined patient prior to procedure and No changes to prior documentation PREOP DIAGNOSIS: desires sterilization PLANNED PROCEDURE: Operation Date: 07/20/21 11:30 Proposed Procedures p Laparoscopic Salpingectomy 13535/z30.2(Bilateral) - Abril Honeycutt MD Related Problem List Diagnoses (1) Sterilization consult:
--- NOTE | 2021-07-20 14:21 | PM.OP ---
Operative Report Date of procedure: July 20, 2021 Pre-op diagnosis: Preop Diagnosis desires sterilization Post-op diagnosis: same Post-op findings: normal appearing uterus, tubes and ovaries. Pelvic adhesions. Procedure done: laparoscopic bilateral salpingectomy Specimens removed/disposition: bilateral fallopian tubes to pathology Surgeon: Abril Honeycutt Anesthesia: General Estimated blood loss (mL): 20 IV fluids (mL): 600 Urine output (mL): 400 Complications: none Findings: 10 week sized uterus, normal appearing tubes and ovaries Condition: stable Disposition: PACU Procedure: The patient was taken to the operating room where general anesthesia was administered and found to be adequate. She was prepped and draped in the normal sterile fashion in the dorsal lithotomy position in [facility]. A Mariscal catheter was placed. A weighted speculum was placed into the vagina and the anterior lip of the cervix grasped with a single-tooth tenaculum. A TuVox uterine manipulator was placed. The gloves were changed and attention was turned to the laparoscopic portion of the case. A 5 mm infraumbilical incision was made. I attempted to place the 5 mm trocar. Even with the long trocar, it was too short due to patient body habitus. I enlarged the incision and grasped the fascia with two andriy clamps. A 10 mm Brown trocar was placed was placed. Intra-abdominal placement was confirmed and CO2 gas was used to insufflate the abdomen. Using direct visualization and illumination of the abdominal wall, two 5 mm incisions were made low and lateral. One on the left and one on the right. The 5mm trochars were then placed under direct visualization. Using the uterine manipulator and the grasper, the fallopian tubes were identified. Using the laparoscopic cautery, the fallopian tube was clamped cauterized and cut. First on the right, then on the left. There was excellent hemostasis post removal of the bilateral tubes. Pictures were taken. All instruments were removed. The abdomen was desufflated. The fascia was closed with 0-Vicryl. The skin incisions were closed with 4-0 Vicryl. 10 ml of 1/4 percent bupivicaine was injected into the abdominal incisions for pain control. The patient tolerated the procedure well. Sponge lap and needle counts were correct x3. She was taken to the recovery room in stable condition.
--- NOTE | 2021-07-20 14:30 | PM.OP ---
Operative Report Date of procedure: July 20, 2021 Pre-op diagnosis: Preop Diagnosis desires sterilization Preop Diagnosis desires sterilization Post-op diagnosis: same Post-op findings: normal appearing uterus, tubes and ovaries Procedure done: laparoscopic bilateral salpingectomy Specimens removed/disposition: bilateral fallopian tubes to pathology Surgeon: Abril Honeycutt Anesthesia: General Estimated blood loss (mL): 20
--- NOTE | 2021-07-20 14:38 | PM.DCS ---
Discharge Providers Date of Discharge: July 20, 2021 Attending Provider at Discharge: Abril Honeycutt MD Primary Care Provider: PRESLEY Truong Diagnoses at Discharge Discharge Diagnosis (1) Sterilization consult: Status: Acute Hospital Course Hospital Course The patient was admitted for surgery. She did well postoperatively and was ready for discharge after surgery. Physical Exam Urinary Catheter Management: Mariscal: Cath Placed During This Visit: yes, but has since been removed by the nurse Urinary Catheter Date of Insertion: 07/20/21 Urinary Catheter Time of Insertion: 12:51 Date Urinary Catheter Removed: 07/20/21 Time Urinary Catheter Discontinued: 14:08 Discharge Data Studies Completed and Pending Pending at discharge Category Date Time Status ES surgery / GI images Routine Exams 07/20/21 12:03 Taken Urine Culture Routine Lab 07/20/21 12:54 Received Pathology: Surgical [PTH] Routine Pth 07/20/21 14:36 Ordered Laboratory Results WBC 9.7 10^3/uL (4.0-10.0) 07/20/21 10:35 RBC 4.62 10^6/uL (4.1-5.3) 07/20/21 10:35 Hgb 11.8 g/dL (11.5-15.3) 07/20/21 10:35 Hct 38.1 % (37.0-47.0) 07/20/21 10:35 MCV 82.5 fl (81-99) 07/20/21 10:35 MCH 25.5 pg (28.0-34.0) L 07/20/21 10:35 MCHC 31.0 g/dL (30.0-36.0) 07/20/21 10:35 RDW 15.3 % (12.1-15.1) H 07/20/21 10:35 Plt Count 385 10^3/cmm (130-400) 07/20/21 10:35 MPV 10.1 fL (7.4-10.4) 07/20/21 10:35 Neut % (Auto) 74.2 % 07/20/21 10:35 Lymph % (Auto) 15.5 % 07/20/21 10:35 [place] % (Auto) 7.6 % 07/20/21 10:35 Eos % (Auto) 2.0 % 07/20/21 10:35 Baso % (Auto) 0.3 % 07/20/21 10:35 Neut # (Auto) 7.17 10^3/uL (1.8-7.7) 07/20/21 10:35 Lymph # (Auto) 1.5 10^3/uL (0.8-4.8) 07/20/21 10:35 [place] # (Auto) 0.7 10^3/uL (0.2-0.9) 07/20/21 10:35 Eos # (Auto) 0.2 10^3/uL (0.0-0.8) 07/20/21 10:35 Baso # (Auto) 0.0 10^3/uL (0.0-0.1) 07/20/21 10:35 Nucleated RBC % (auto) 0 % 07/20/21 10:35 Nucleated RBCs # 0.0 /100WBC 07/20/21 10:35 Sodium 137 mmol/L (136-145) 07/20/21 10:35 Potassium 3.9 mmol/L (3.5-5.1) 07/20/21 10:35 Chloride 101 mmol/L (98-107) 07/20/21 10:35 Carbon Dioxide 28 mmol/L (22-29) 07/20/21 10:35 Anion Gap 11.9 (5-19) 07/20/21 10:35 BUN 5 mg/dL (6-20) L 07/20/21 10:35 Creatinine 0.4 mg/dL (0.5-0.9) L 07/20/21 10:35 GFR Calculation 178.6 mL/min (90-130) H 07/20/21 10:35 Glucose 83 mg/dL (65-115) 07/20/21 10:35 Calculated Osmolality 280 mOsm/kg (285-295) L 07/20/21 10:35 Calcium 9.3 mg/dL (8.5-10.5) 07/20/21 10:35 Urine HCG, Qual Negative (Negative) 07/20/21 10:59 Vitals Last Vital Signs Temp 97.7 F 07/20/21 10:12 Pulse 84 07/20/21 10:12 Resp 18 07/20/21 10:12 BP 146/91 07/20/21 10:12 Pulse Ox 99 07/20/21 10:12 Discharge Plan Discharge Patient Disposition: Home Condition: Stable Prescriptions: New hydrocodone-acetaminophen 5-325 mg tablet 1 tab PO Q6H PRN (Reason: pain) Qty: 20 0RF Continued Complete 14 mg iron- 400 mcg Tablet 1 tab PO DAILY 0RF famotidine [Pepcid] 20 mg Tablet 20 mg PO BID 0RF Discharge Orders: Discharge Order (Routine); Ordered 07/20/21 Ordered By: Abril Honeycutt Discharge Attestations Time Spent in Discharge Care*: less than 30 min Quality Metrics Clinical Quality Measures [ No reported AMI, CVA or VTE this stay] Coding Level of Care Code Acute Chg FW DC note Diagnoses Sterilization consult Z30.09
--- NOTE | 2021-07-20 14:55 | SUR.PHASEI ---
1432 PT TO PACU 4 PT SLEEPS WITH GOOD RESP EFFORT NOTED VSS IV PATENT TO RT AC #18 WITH NS 600ML UP AT KVO RATE PER GRAVITY. WARM BLANKETS TO PT X 4 ABDOMEN SOFT WITH 3 SITES WITH DERMABOND, BILAT SCDS ON. PT ID BRACELET TO RT WRIST , PT ID'D WITH 2 IDENTIFIERS.
[2021-07-20] MEDS: HYDROcodone-acetaminophen 5-325 mg Tablet 1 TAB PO (15:35)
--- NOTE | 2021-07-20 16:28 | ANE.PACU2 ---
Inpatient post-anesthesia follow up: Airway intact: Yes Vital signs: Temperature 97.6 F Pulse Rate 87 Respiratory Rate 16 Blood Pressure 175/94 Pulse Oximetry 94 Oxygen Delivery Me thod Room Air Oxygen Flow Rate 8 Fraction of Inspir ed Oxygen Hydration adequate: Yes Nausea and vomiting: No Pain level: 2 Mental status: Baseline
== END 2021-07-20 15:47 | disposition home or self-care (01) ==
PROVIDERS: PCP Nurse Practitioner Family; Visit Provider Obstetrics & Gynecology
PROC: (CPT 58661; principal; 2021-07-20 11:20)
DX: Z30.2 Encounter for sterilization (principal); K66.0 Peritoneal adhesions (postprocedural) (postinfection)
CPT/HCPCS: 58661; 36415; 80048; 81025; 84703; 85025; 87086; 88302; J0690; J1100; J1885; J2405; J2704; J3010; J3490; J7030

== ENCOUNTER → 2024-01-02 11:05 | Outpatient (BNVA) | payer BC, MEDICAID, SELFPAY | PROVIDERS: PCP Nurse Practitioner Family; Visit Provider Podiatrist Foot & Ankle Surgery | DX: M79.671 Pain in right foot (principal); M72.2 Plantar fascial fibromatosis | CPT/HCPCS: 73630 ==